=== PATIENT | female | born 1935 | race Caucasian/White ===

== ENCOUNTER 2018-06-03 12:27 | Emergency (ER) | payer OTHER ==
--- NOTE | 2018-06-03 13:05 | EDPHYS ---
Physician Documentation [facility] Name: Shannen Zaldivar Age: 82 yrs Sex: Female : 1935 Arrival Date: 06/03/2018 Time: 12:32 Bed 12 Private MD: Jordy Song C ED Physician Delvin Walsh HPI: 06/03 13:02 This 82 yrs old Female presents to ER via Ambulatory with complaints of jr8 Drainage From Eye. 13:02 The patient is experiencing pain, redness. Onset: The symptoms/episode began/occurred jr8 gradually, 3 day(s) ago. Duration: the symptoms are continuous. Aggravated by pressure, rubbing, Alleviated by heat application. Associated signs and symptoms: Pertinent positives: None. Patient wears glasses. Severity of symptoms: At their worst the symptoms were mild in the emergency department the symptoms are unchanged. The patient has not experienced similar symptoms in the past. The patient has been recently seen at an urgent care. sent from urgent care to evaluate eye to r/o cellulitis . Historical: - Allergies: 12:43 sulfamethoxazole-trimethoprim; aj1 12:43 TRIMETHOPRIM; aj1 - Home Meds: 12:43 DDAVP oral oral [Active]; tolterodine 4 mg oral cp24 1 cap once daily [Active]; Cortef aj1 5 mg Oral tab 2 tabs 2 times per day [Active]; lisinopril 20 mg Oral tab 1 tab twice a day [Active]; atorvastatin 20 mg Oral tab 1 tab once daily [Active]; Synthroid 50 mcg Oral tab 1 tab once daily [Active]; carvedilol 25 mg Oral tab 0.5 tab 2 times per day [Active]; aspirin 81 mg Oral chew 1 tab once daily [Active]; - PMHx: 12:43 Hyperlipidemia; Hypertension; Hypothyroidism; pituitary dysfunction; aj1 - PSHx: 12:43 Hysterectomy; Mastectomy; Knee surgery; aj1 - Immunization history:: Flu vaccine is up to date. - Social history:: Smoking status: Patient/guardian denies using tobacco. - Ebola Screening: : Patient denies travel to an Ebola-affected area in the 21 days before illness onset. ROS: 13:02 ENT: Negative for injury, pain, and discharge, Neck: Negative for injury, pain, and jr8 swelling, Cardiovascular: Negative for chest pain, palpitations, and edema, Respiratory: Negative for shortness of breath, cough, wheezing, and pleuritic chest pain, Abdomen/GI: Negative for abdominal pain, nausea, vomiting, diarrhea, and constipation, Back: Negative for injury and pain, MS/Extremity: Negative for injury and deformity, Skin: Negative for injury, rash, and discoloration, Neuro: Negative for headache, weakness, numbness, tingling, and seizure. 13:02 Eyes: Positive for pain, redness, swelling, of the left lower eyelid. Exam: 13:02 Visual Acuity: Visual acuity is within normal limits. jr8 13:02 Head/Face: Normocephalic, atraumatic. ENT: Nares patent. No nasal discharge, no septal abnormalities noted. Tympanic membranes are normal and external auditory canals are clear. Oropharynx with no redness, swelling, or masses, exudates, or evidence of obstruction, uvula midline. Mucous membranes moist. Neck: Trachea midline, no thyromegaly or masses palpated, and no cervical lymphadenopathy. Supple, full range of motion without nuchal rigidity, or vertebral point tenderness. No Meningismus. Cardiovascular: Regular rate and rhythm with a normal S1 and S2. No gallops, murmurs, or rubs. Normal PMI, no JVD. No pulse deficits. Respiratory: Lungs have equal breath sounds bilaterally, clear to auscultation and percussion. No rales, rhonchi or wheezes noted. No increased work of breathing, no retractions or nasal flaring. Abdomen/GI: Soft, non-tender, with normal bowel sounds. No distension or tympany. No guarding or rebound. No evidence of tenderness throughout. Back: No spinal tenderness. No costovertebral tenderness. Full range of motion. Skin: Warm, dry with normal turgor. Normal color with no rashes, no lesions, and no evidence of cellulitis. MS/ Extremity: Pulses equal, no cyanosis. Neurovascular intact. Full, normal range of motion. Neuro: Awake and alert, GCS 15, oriented to person, place, time, and situation. Cranial nerves II-XII grossly intact. Motor strength 5/5 in all extremities. Sensory grossly intact. Cerebellar exam normal. Normal gait. 13:02 Eyes: Periorbital structures: erythema, that is mild, on the left lower eyelid, swelling, that is mild, on the left lower eyelid, Pupils: equal, round, and reactive to light and accomodation, Extraocular movements: intact throughout, Conjunctiva: normal, Corneas: are normal, Sclera: no appreciated abnormality, Anterior chamber: normal, no hyphema, Lids and lashes: stye, on the left lid, Examination of the other eye reveals no obvious gross abnormality. Vital Signs: 12:43 BP 177 / 77; Pulse 50; Resp 20; Temp 97.8; Pulse Ox 96% on R/A; Weight 63.96 kg (R); aj1 Height 5 ft. 0 in. (152.40 cm); Pain 0/10; 12:43 Body Mass Index 27.54 (63.96 kg, 152.40 cm) aj1 MDM: 12:53 Patient medically screened. jr8 13:02 Data reviewed: vital signs, nurses notes, and as a result, I will discharge patient. jr8 Data interpreted: Pulse oximetry: on room air is 96 %. Interpretation: normal. Counseling: I had a detailed discussion with the patient and/or guardian regarding: the historical points, exam findings, and any diagnostic results supporting the discharge/admit diagnosis, the need for outpatient follow up, an opthalmologist, to return to the emergency department if symptoms worsen or persist or if there are any questions or concerns that arise at home. Administered Medications: No medications were administered Disposition: 06/03/18 13:05 Discharged to Home. Impression: Hordeolum (externum) (internum) of eyelid. - Condition is Stable. - Discharge Instructions: Stye. - Prescriptions for Gentamicin 0.3 % (3 mg/gram) Ophthalmic Ointment - apply 0.5 inch by OPHTHALMIC route 2-3 times daily for 7 days; 3.5 gram. - Medication Reconciliation Form, Thank You Letter, Antibiotic Education, Prescription Opioid Use form. - Follow up: Yohan Saini MD; When: 5 - 6 days; Reason: If symptoms return, Recheck today's complaints, Continuance of care, Re-evaluation by your physician. - Problem is new. - Symptoms have improved. - Notes: Warm moist towel application to left eye with light massage 5 times a day for 15-20 min per time Addendum: 06/04/2018 14:23 Co-signature as Attending Physician, Delvin Walsh MD I agree with the assessment and c larkin plan of care. Signatures: Evy Gloria, RN RN aj1 Delvin Walsh MD MD cha Williams, Irene, RN RN iw Manuel Farmer PA PA jr8 Corrections: (The following items were deleted from the chart) 06/03 13:14 13:05 06/03/2018 13:05 Discharged to Home. Impression: Hordeolum (externum) (internum) iw of eyelid. Condition is Stable. Forms are Medication Reconciliation Form, Thank You Letter, Antibiotic Education, Prescription Opioid Use. Follow up: Yohan Saini; When: 5 - 6 days; Reason: If symptoms return, Recheck today's complaints, Continuance of care, Re-evaluation by your physician. Problem is new. Symptoms have improved. jr8
--- NOTE | 2018-06-03 13:05 | ER ---
Nurse's Notes [facility] Name: Shannen Zaldivar Age: 82 yrs Sex: Female : 1935 Arrival Date: 06/03/2018 Time: 12:32 Bed 12 Private MD: Jordy Song C Diagnosis: Hordeolum (externum) (internum) of eyelid Presentation: 06/03 12:35 Presenting complaint: Patient states: Redness to left eye that started Monday aj1 afternoon. Patient reports it started with itching, and she thought it was just irritated, but it just kept getting worse. Reports tearing of the left eye. Transition of care: patient was not received from another setting of care. Onset of symptoms was June 01, 2018. Risk Assessment: Do you want to hurt yourself or someone else? Patient reports no desire to harm self or others. Initial Sepsis Screen: Does the patient meet any 2 criteria? No. Patient's initial sepsis screen is negative. Does the patient have a suspected source of infection? No. Patient's initial sepsis screen is negative. Care prior to arrival: None. 12:35 Method Of Arrival: Ambulatory aj1 12:35 Acuity: DARNELL 4 aj1 Triage Assessment: 12:43 General: Appears in no apparent distress. comfortable, Behavior is calm, cooperative, aj1 appropriate for age. Pain: Denies pain. EENT: Eyes are tearing on left lower eyelid Lid(s) w/ stye noted left inner canthus redness noted below left eye. Neuro: Level of Consciousness is awake, alert, obeys commands. Cardiovascular: Patient's skin is warm and dry. Respiratory: Airway is patent Respiratory effort is even, unlabored, Respiratory pattern is regular, symmetrical. Historical: - Allergies: 12:43 sulfamethoxazole-trimethoprim; aj1 12:43 TRIMETHOPRIM; aj1 - Home Meds: 12:43 DDAVP oral oral [Active]; tolterodine 4 mg oral cp24 1 cap once daily [Active]; Cortef aj1 5 mg Oral tab 2 tabs 2 times per day [Active]; lisinopril 20 mg Oral tab 1 tab twice a day [Active]; atorvastatin 20 mg Oral tab 1 tab once daily [Active]; Synthroid 50 mcg Oral tab 1 tab once daily [Active]; carvedilol 25 mg Oral tab 0.5 tab 2 times per day [Active]; aspirin 81 mg Oral chew 1 tab once daily [Active]; - PMHx: 12:43 Hyperlipidemia; Hypertension; Hypothyroidism; pituitary dysfunction; aj1 - PSHx: 12:43 Hysterectomy; Mastectomy; Knee surgery; aj1 - Immunization history:: Flu vaccine is up to date. - Social history:: Smoking status: Patient/guardian denies using tobacco. - Ebola Screening: : Patient denies travel to an Ebola-affected area in the 21 days before illness onset. Screenin:13 Abuse screen: Denies threats or abuse. Denies injuries from another. Nutritional iw screening: No deficits noted. Tuberculosis screening: No symptoms or risk factors identified. Fall Risk None identified. Assessment: 13:12 General: Appears in no apparent distress. Behavior is calm, cooperative. Pain: iw Complains of pain in left inner canthus and left lower eyelid. Neuro: Level of Consciousness is awake, alert, obeys commands. Cardiovascular: Patient's skin is warm and dry. Respiratory: Respiratory effort is even, unlabored. EENT: Sclera/Cornea are reddened in left lower eyelid Lid(s) w/ stye noted left lower eyelid. Derm: Skin is pink, warm \T\ dry. normal. Vital Signs: 12:43 BP 177 / 77; Pulse 50; Resp 20; Temp 97.8; Pulse Ox 96% on R/A; Weight 63.96 kg (R); aj1 Height 5 ft. 0 in. (152.40 cm); Pain 0/10; 12:43 Body Mass Index 27.54 (63.96 kg, 152.40 cm) aj1 ED Course: 12:32 Patient arrived in ED. mr 12:32 Jordy Song MD is Private Physician. mr 12:38 Triage completed. aj1 12:48 Amarilis Tapia, NOEMI is Primary Nurse. iw 12:50 Arm band placed on. iw 12:50 Patient has correct armband on for positive identification. iw 12:52 Manuel Farmer PA is PHCP. jr8 12:52 Delvin Walsh MD is Attending Physician. jr8 13:05 Yohan Saini MD is Referral Physician. jr8 13:13 No provider procedures requiring assistance completed. Patient did not have IV access iw during this emergency room visit. Administered Medications: No medications were administered Outcome: 13:05 Discharge ordered by MD. wells 13:13 Discharged to home ambulatory. 13:13 Condition: good 13:13 Discharge instructions given to patient, Instructed on discharge instructions, follow up and referral plans. medication usage, Demonstrated understanding of instructions, follow-up care, medications, Prescriptions given X 1. 13:14 Patient left the ED. iw Signatures: Evy Gloria RN RN aj1 Samantha Felder mr Amarilis Tapia RN RN Manuel Farmer PA PA jr8
[2018-06-03 13:18] VITALS: BP 177/77; TEMP 97.8; O2SAT 96
== END 2018-06-03 13:14 | disposition home or self-care (01) ==
LOC: ER 12:27
DX: H00.025 Hordeolum internum left lower eyelid (principal); E78.5 Hyperlipidemia, unspecified; E03.9 Hypothyroidism, unspecified; I10 Essential (primary) hypertension; Z88.2 Allergy status to sulfonamides; Z88.8 Allergy status to other drugs, medicaments and biological substances
CPT/HCPCS: 99282

== ENCOUNTER 2019-02-15 08:37 | Emergency (ER) | payer OTHER ==
--- NOTE | 2019-02-15 09:17 | RAD REPORT ---
EXAM DESCRIPTION: CT - Head C Spine Mpr Wo Con - 02/15/2019 8:55 am CLINICAL HISTORY: Head and neck injury status post fall. Head and neck pain COMPARISON: None. TECHNIQUE: Computed axial tomography of the head and cervical spine was obtained. Sagittal and coronal reconstruction was performed. All CT scans are performed using dose optimization technique as appropriate and may include automated exposure control or mA/KV adjustment according to patient size. FINDINGS: Left frontal scalp hematoma. An underlying skull fracture is not seen. 7 millimeter calcification is present within the region of the right anterior aspect of the lummi of Robles. An intracranial bleed is not seen. The ventricles are normal in caliber. An extra-axial fluid collect ion is not noted.Fluid within the visualized sinuses and mastoids is not seen A cervical fracture is not visualized. Mild anterior subluxation of C4 on C5. Mild posterior subluxation C5 on C6. Marked disc space narrowing with osteophytes. Mild to moderate c entral and moderate to marked bilateral foraminal stenosis Mild anterior subluxation C7 on T1 IMPRESSION: Left frontal scalp hematoma without visualization without acute abnormality 7 millimeter calcification within the region of the right anterior aspect of the lummi Robles may re present an aneurysm. MRI brain with contrast and MRA head recommended A cervical fracture is not visualized. Mild anterior subluxation C4 on C5. Mild posterior subluxation C5 on C6. Mild anterior subluxation C7 on T1. Presumably these are chronic findings. If patient has clinical symptoms to suggest spinal cor d pathology/ligamentous injury then MRI would be recommended
[2019-02-15] MEDS ORDERED: DERMABOND SKIN ADHESIVE TOP ONE (10:09)
--- NOTE | 2019-02-15 11:23 | RAD REPORT ---
EXAM DESCRIPTION: RAD - Hand Left 3 View - 02/15/2019 11:02 am CLINICAL HISTORY: Trip and fall, hand pain, pain primarily fifth digit COMPARISON: None. FINDINGS: No fracture, dislocation or periosteal reaction noted. Bones are osteopenic. IP joint spac e narrowing is present along with significant joint space narrowing at the second MCP joint. No signi ficant spurring the joints and no erosive change. Patient has moderately advanced degenerative change at the trapezium first metacarpal articulation. Advanced degenerative changes are present at the rad iocarpal articulation. There is chronic scapholunate ligament disruption and widening of the scapholu gabino joint space. Significant degenerative changes involve the articulation of the scaphoid with the trapezoid and trapezium. Radiocarpal joint space is significantly narrowed with remodeling of the art icular surface of the radius near the styloid. No air or foreign body in the soft tissues. 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 No fracture or acute froilan ne finding identifiable.
--- NOTE | 2019-02-15 11:39 | EDPHYS ---
Physician Documentation [facility] Name: Shannen Zaldivar Age: 83 yrs Sex: Female : 1935 Arrival Date: 02/15/2019 Time: 08:39 Bed 15 Private MD: ED Physician Yobany Petersen HPI: 02/15 09:54 This 83 yrs old Female presents to ER via EMS with complaints of Fall Injury. snw 09:54 Details of fall: The patient fell from an upright position, tripped taking out the snw trash. Onset: The symptoms/episode began/occurred suddenly, just prior to arrival. Associated injuries: The patient sustained injury to the head. Severity of symptoms: At their worst the symptoms were mild, moderate. It is unknown whether or not the patient has had similar symptoms in the past. It is unknown whether or not the patient has recently seen a physician. no LOC. Denies complaint at this time.. Historical: - Allergies: 08:49 sulfamethoxazole-trimethoprim; hj 08:49 TRIMETHOPRIM; hj - Home Meds: 08:49 alprazolam 0.25 mg Oral tab 1 tab daily [Active]; aspirin 81 mg Oral chew 1 tab once hj daily [Active]; atorvastatin 20 mg Oral tab 1 tab once daily [Active]; carvedilol 25 mg Oral tab 0.5 tab 2 times per day [Active]; lisinopril 20 mg Oral tab 1 tab twice a day [Active]; Synthroid 50 mcg Oral tab 1 tab once daily [Active]; DDAVP Oral nightly [Active]; Cortef 5 mg Oral tab 2 tabs 2 times per day [Active]; tolterodine 4 mg Oral cp24 1 cap once daily [Active]; tramadol 50 mg Oral tab 1 tab as needed [Active]; promethazine 25 mg Oral tab 1 tab as needed [Active]; - PMHx: 08:49 Hyperlipidemia; Hypertension; Hypothyroidism; pituitary dysfunction; hj - PSHx: 08:49 Hysterectomy; Mastectomy; Knee surgery; hj - Immunization history: Last tetanus immunization: unknown. - Social history:: Smoking status: Patient/guardian denies using tobacco, Patient/guardian denies using alcohol. - Ebola Screening: : Patient negative for fever greater than or equal to 101.5 degrees Fahrenheit, and additional compatible Ebola Virus Disease symptoms Patient denies exposure to infectious person Patient denies travel to an Ebola-affected area in the 21 days before illness onset. ROS: 09:53 Constitutional: Negative for fever, chills, and weight loss, Eyes: Negative for injury, snw pain, redness, and discharge, ENT: Negative for injury, pain, and discharge, Neck: Negative for injury, pain, and swelling, Cardiovascular: Negative for chest pain, palpitations, and edema, Respiratory: Negative for shortness of breath, cough, wheezing, and pleuritic chest pain, Abdomen/GI: Negative for abdominal pain, nausea, vomiting, diarrhea, and constipation, Back: Negative for injury and pain, : Negative for injury, bleeding, discharge, and swelling, MS/Extremity: Negative for injury and deformity, sore left pinkie 09:53 Skin: Positive for laceration(s), of the forehead. Exam: 09:49 Constitutional: This is a well developed, well nourished patient who is awake, alert, snw and in no acute distress. Eyes: Pupils equal round and reactive to light, extra-ocular motions intact. Lids and lashes normal. Conjunctiva and sclera are non-icteric and not injected. Cornea within normal limits. Periorbital areas with no swelling, redness, or edema. ENT: Nares patent. No nasal discharge, no septal abnormalities noted. Tympanic membranes are normal and external auditory canals are clear. Oropharynx with no redness, swelling, or masses, exudates, or evidence of obstruction, uvula midline. Mucous membranes moist. Neck: Trachea midline, no thyromegaly or masses palpated, and no cervical lymphadenopathy. Supple, full range of motion without nuchal rigidity, or vertebral point tenderness. No Meningismus. Chest/axilla: Normal chest wall appearance and motion. Nontender with no deformity. No lesions are appreciated. 09:49 Respiratory: Lungs have equal breath sounds bilaterally, clear to auscultation and percussion. No rales, rhonchi or wheezes noted. No increased work of breathing, no retractions or nasal flaring. Abdomen/GI: Soft, non-tender, with normal bowel sounds. No distension or tympany. No guarding or rebound. No evidence of tenderness throughout. Back: No spinal tenderness. No costovertebral tenderness. Full range of motion. MS/ Extremity: Pulses equal, no cyanosis. Neurovascular intact. Full, normal range of motion. Neuro: Awake and alert, GCS 15, oriented to person, place, time, and situation. Cranial nerves II-XII grossly intact. Motor strength 5/5 in all extremities. Sensory grossly intact. Cerebellar exam normal. Normal gait. Psych: Awake, alert, with orientation to person, place and time. Behavior, mood, and affect are within normal limits. 09:49 ENT: Nares patent. No nasal discharge, no septal abnormalities noted. Tympanic membranes are normal and external auditory canals are clear. Oropharynx with no redness, swelling, or masses, exudates, or evidence of obstruction, uvula midline. Mucous membranes moist. left lateral nare with scabbed area (pt states she picked at it a day or so ago) 09:49 Head/face: Noted is contusion, that is deep, of the left side of forehead, a laceration(s), that is superficial, that is linear, 2.5 cm(s), of the left side of forehead. 09:49 Cardiovascular: Rate: bradycardic, Rhythm: regular, Heart sounds: normal. 09:49 Skin: Appearance: normal except for affected area, injury, contusion(s), that are superficial, of the forehead and nose and left hand and left wrist, skin avulsion to left wrist. Vital Signs: 08:39 BP 141 / 52; Pulse 48; Resp 18; Temp 97.3(TE); Pulse Ox 98% on R/A; Weight 64.86 kg; Height 5 ft. 0 in. (152.40 cm); Pain 5/10; 10:53 BP 141 / 54; Pulse 82; Resp 17; Pulse Ox 98% on R/A; dh3 11:31 BP 115 / 73 LA Supine; Pulse 45; Resp 16 S; Pulse Ox 98% on R/A; rv 08:39 Body Mass Index 27.93 (64.86 kg, 152.40 cm) Roslyn Coma Score: 08:39 Eye Response: spontaneous(4). Verbal Response: oriented(5). Motor Response: obeys commands(6). Total: 15. Trauma Score (Adult): 08:39 Eye Response: spontaneous(1); Verbal Response: oriented(1); Motor Response: obeys hj commands(2); Systolic BP: > 89 mm Hg(4); Respiratory Rate: 10 to 29 per min(4); Roslyn Score: 15; Trauma Score: 12 MDM: 09:46 Patient medically screened. snw 11:39 Data reviewed: vital signs, nurses notes. Data interpreted: Pulse oximetry: on room air snw is 98 %. Interpretation: normal. Counseling: I had a detailed discussion with the patient and/or guardian regarding: the historical points, exam findings, and any diagnostic results supporting the discharge/admit diagnosis, the need for outpatient follow up, for definitive care, to return to the emergency department if symptoms worsen or persist or if there are any questions or concerns that arise at home. Special discussion: Based on the history and exam findings, there is no indication for further emergent testing or inpatient evaluation. I discussed with the patient/guardian the need to see the primary care provider for further evaluation of the symptoms. 02/15 08:46 Order name: CT Head C Spine; Complete Time: 09:45 snw 02/15 10:16 Order name: Hand Left 3 View XRAY; Complete Time: 11:25 snw 02/15 09:03 Order name: EKG - Nurse/Tech; Complete Time: 09:08 hj 02/15 09:47 Order name: Wound Care; Complete Time: 09:56 snw 02/15 09:47 Order name: Wound dressing; Complete Time: 09:56 snw 02/15 09:47 Order name: Dermabond; Complete Time: 10:06 snw Administered Medications: No medications were administered Disposition: 12:11 Co-signature as Attending Physician, Yobany Petersen MD I agree with the assessment and kdr plan of care. Disposition: 02/15/19 11:38 Discharged to Home. Impression: Fall on same level from slipping, tripping and stumbling with subsequent striking against other object, Laceration without foreign body of unspecified part of head - left forehead, Contusion of left hand, Left wrist skin avulsion. - Condition is Stable. - Discharge Instructions: Hand Contusion, Tissue Adhesive Wound Care, Head Injury, Adult, Fall Prevention in the Home, Facial Laceration, Skin Tear Care. - Prescriptions for Mobic 7.5 mg Oral Tablet - take 1 tablet by ORAL route once daily take with food; 10 tablet. - Medication Reconciliation Form, Thank You Letter, Antibiotic Education, Prescription Opioid Use form. - Follow up: Private Physician; When: 2 - 3 days; Reason: Recheck today's complaints, Continuance of care, Re-evaluation by your physician. Follow up: Emergency Department; When: As needed; Reason: Worsening of condition. Signatures: Dispatcher [employer] EDMS Yobany Petersen MD MD [facility] Alanna Monteiro, MARY KAY-C ENGINE TESTING SUPERVISOR-[employer] Stephon Ledezma, NOEMI RN Juan Edmonds RN RN rv Corrections: (The following items were deleted from the chart) 11:42 11:38 02/15/2019 11:38 Discharged to Home. Impression: Fall on same level from rv slipping, tripping and stumbling with subsequent striking against other object; Laceration without foreign body of unspecified part of head - left forehead; Contusion of left hand; Left wrist skin avulsion. Condition is Stable. Discharge Instructions: Hand Contusion, Tissue Adhesive Wound Care, Head Injury, Adult, Fall Prevention in the Home, Facial Laceration, Skin Tear Care. Prescriptions for Mobic 7.5 mg Oral Tablet - take 1 tablet by ORAL route once daily take with food; 10 tablet. and Forms are Medication Reconciliation Form, Thank You Letter, Antibiotic Education, Prescription Opioid Use. Follow up: Private Physician; When: 2 - 3 days; Reason: Recheck today's complaints, Continuance of care, Re-evaluation by your physician. Follow up: Emergency Department; When: As needed; Reason: Worsening of condition. snw
--- NOTE | 2019-02-15 11:39 | ER ---
Nurse's Notes [facility] Name: Shannen Zaldivar Age: 83 yrs Sex: Female : 1935 Arrival Date: 02/15/2019 Time: 08:39 Bed 15 Private MD: Diagnosis: Fall on same level from slipping, tripping and stumbling with subsequent striking against other object;Laceration without foreign body of unspecified part of head-left forehead;Contusion of left hand;Left wrist skin avulsion Presentation: 02/15 08:41 Presenting complaint: EMS states: was getting the trash out of the house when pt hj tripped and fell from standing position, had a cut on the L side of the head and lac on the L arm area; denies LOC; takes daily 81 mg aspirin, and hx of brain surgery 1990;. Care prior to arrival: None. Mechanism of Injury: Fall from standing position. Trauma event details: Injury occurred in the [facility], Injury occurred: at home. Injury occurred: February 15, 2019. 08:41 Acuity: DARNELL 3 hj 08:41 Method Of Arrival: EMS: [facility] 08:46 Transition of care: patient was not received from another setting of care. Onset of hj symptoms was February 15, 2019. Risk Assessment: Do you want to hurt yourself or someone else? Patient reports no desire to harm self or others. Initial Sepsis Screen: Does the patient meet any 2 criteria? No. Patient's initial sepsis screen is negative. Does the patient have a suspected source of infection? No. Patient's initial sepsis screen is negative. Trauma Activation: Alert Physician: ED Physician; Name: ; Notified At: ; Arrived At: Physician: General Surgeon; Name: ; Notified At: ; Arrived At: Physician: Radiology; Name: ; Notified At: ; Arrived At: Physician: Respiratory; Name: ; Notified At: ; Arrived At: Physician: Lab; Name: ; Notified At: ; Arrived At: Historical: - Allergies: 08:49 sulfamethoxazole-trimethoprim; hj 08:49 TRIMETHOPRIM; hj - Home Meds: 08:49 alprazolam 0.25 mg Oral tab 1 tab daily [Active]; aspirin 81 mg Oral chew 1 tab once hj daily [Active]; atorvastatin 20 mg Oral tab 1 tab once daily [Active]; carvedilol 25 mg Oral tab 0.5 tab 2 times per day [Active]; lisinopril 20 mg Oral tab 1 tab twice a day [Active]; Synthroid 50 mcg Oral tab 1 tab once daily [Active]; DDAVP Oral nightly [Active]; Cortef 5 mg Oral tab 2 tabs 2 times per day [Active]; tolterodine 4 mg Oral cp24 1 cap once daily [Active]; tramadol 50 mg Oral tab 1 tab as needed [Active]; promethazine 25 mg Oral tab 1 tab as needed [Active]; - PMHx: 08:49 Hyperlipidemia; Hypertension; Hypothyroidism; pituitary dysfunction; hj - PSHx: 08:49 Hysterectomy; Mastectomy; Knee surgery; hj - Immunization history: Last tetanus immunization: unknown. - Social history:: Smoking status: Patient/guardian denies using tobacco, Patient/guardian denies using alcohol. - Ebola Screening: : Patient negative for fever greater than or equal to 101.5 degrees Fahrenheit, and additional compatible Ebola Virus Disease symptoms Patient denies exposure to infectious person Patient denies travel to an Ebola-affected area in the 21 days before illness onset. Screenin:45 Abuse screen: Denies threats or abuse. Denies injuries from another. Nutritional hj screening: No deficits noted. Tuberculosis screening: Fall Risk Fall in past 12 months (25 points). Primary Survey: 08:40 NO uncontrolled hemorrhage observed. A: The patient is alert. Airway: patent, No hj supplemental oxygen in use on arrival. Oral cavity: clear, gag reflex present, Trachea midline. Breathing/Chest: Respiratory pattern: regular, Respiratory effort: spontaneous, unlabored, Breath sounds: clear, Chest inspection: symmetrical rise and fall of the chest. Circulation: Cardiac rhythm: sinus bradycardia Heart tones present. Pulses: palpable right radial artery and left radial artery. Skin color: pink, Skin temperature: warm, dry. Disability Alert. Exposure/Environment: All clothing and personal items were removed. Forensic evidence collection is not deemed to be indicated at this time. Items placed in patient belonging bag. There is no evidence of uncontrolled external bleeding. No obvious injuries are noted at this time. A warming method has been applied: A warm blanket has been provided to the patient. 08:40 Reassessment Airway Airway Patent Oxygen No O2 Oral cavity Clear +Gag reflex Trachea hj Midline Breathing/Chest Respiratory pattern Regular Respiratory effort Spontaneous Unlabored Breath sounds Clear Chest inspection Symmetrical Circulation Heart rhythm Sinus rhythm Heart tones Present Pulses Palpable Color [place] Temperature Warm Dry Disability Alert. Secondary Survey: 08:40 HEENT: Head Other lac L side of head Face No injury/deformity Eyes: No injury or hj deformity noted. Ears: clear Nose: clear. Gastrointestinal: No deficits noted. : No signs and/or symptoms were reported regarding the genitourinary system. Musculoskeletal: Reports pain in head, L arm. Assessment: 08:44 General: Appears in no apparent distress. uncomfortable, Behavior is calm, cooperative, hj appropriate for age. Pain: Complains of pain in head, L arm. Neuro: Level of Consciousness is awake, alert, obeys commands, Oriented to person, place, time, situation, Appropriate for age. EENT: No signs and/or symptoms were reported regarding the EENT system. Cardiovascular: Capillary refill < 3 seconds Patient's skin is warm and dry. Cardiovascular: Rhythm is sinus bradycardia. Respiratory: Airway is patent Respiratory effort is even, unlabored, Respiratory pattern is regular, symmetrical. GI: No signs and/or symptoms were reported involving the gastrointestinal system. : No signs and/or symptoms were reported regarding the genitourinary system. Derm: Reports lac on L side of head, L arm. Musculoskeletal: No signs and/or symptoms reported regarding the musculoskeletal system. Vital Signs: 08:39 BP 141 / 52; Pulse 48; Resp 18; Temp 97.3(TE); Pulse Ox 98% on R/A; Weight 64.86 kg; hj Height 5 ft. 0 in. (152.40 cm); Pain 5/10; 10:53 BP 141 / 54; Pulse 82; Resp 17; Pulse Ox 98% on R/A; dh3 11:31 BP 115 / 73 LA Supine; Pulse 45; Resp 16 S; Pulse Ox 98% on R/A; rv 08:39 Body Mass Index 27.93 (64.86 kg, 152.40 cm) [place]utton Coma Score: 08:39 Eye Response: spontaneous(4). Verbal Response: oriented(5). Motor Response: obeys commands(6). Total: 15. Trauma Score (Adult): 08:39 Eye Response: spontaneous(1); Verbal Response: oriented(1); Motor Response: obeys hj commands(2); Systolic BP: > 89 mm Hg(4); Respiratory Rate: 10 to 29 per min(4); Roslyn Score: 15; Trauma Score: 12 ED Course: 08:39 Patient arrived in ED. hj 08:44 Triage completed. hj 08:45 Arm band placed on right wrist. hj 08:49 Patient maintains SpO2 saturation greater than 95% on room air. hj 08:50 Stephon Ledezma, NOEMI is Primary Nurse. hj 08:50 Patient has correct armband on for positive identification. Placed in gown. Bed in low hj position. Call light in reach. Side rails up X 1. 08:50 Thermoregulation: warm blanket given to patient. hj 08:[address] via stretcher. nj 08:56 CT Head C Spine In Process Unspecified. EDMS 09:05 Yobany Petersen MD is Attending Physician. kdr 09:28 [facility] Monteiro [facility]-C [facility] snw 09:56 Wound care: to laceration located on forehead was cleaned with Hibiclens, and normal dh3 saline. 09:58 Wound care: to skin tear to left wrist, cleaned with Hibiclens and normal saline dh3 dressed with non-adherent gauze and tube gauze. 10:20 Juan Edmonds, NOEMI is Primary Nurse. rv 11:01 X-ray completed. Portable x-ray completed in exam room. Patient tolerated procedure ml well. 11:02 Hand Left 3 View XRAY In Process Unspecified. EDMS 11:31 Assist provider with laceration repair on left side of forehead that was 2.5 cm. or rv less using Dermabond. Performed by Alanna MOCTEZUMA Dressed with non-adherent, gauze Patient tolerated well. Patient did not have IV access during this emergency room visit. Administered Medications: No medications were administered Outcome: 11:33 Discharged to home ambulatory. rv 11:33 Condition: good 11:33 Discharge instructions given to patient, family, Instructed on discharge instructions, follow up and referral plans. medication usage, wound care, Demonstrated understanding of instructions, follow-up care, medications, wound care, Prescriptions given X 1. 11:38 Discharge ordered by . snw 11:42 Patient left the ED. rv Signatures: Dispatcher [employer] EDMS Yobany Petersen MD MD kdr Thania, Alanna, BACKROOM ASSOCIATE-C BACKROOM ASSOCIATE-Csnw Ann-Marie Black Henry, RN RN Sim Mayers Deanna [facility] Juan Edmonds RN RN rv Corrections: (The following items were deleted from the chart) 09:58 09:56 Wound care: to laceration located on forehead was cleaned with Hibiclens, and dh3 normal saline dh3 10:05 09:58 Wound care: to skin tear, cleaned with Hibiclens and normal saline dressed with dh3 non-adherent gauze and tube gauze dh3
[2019-02-15 13:09] VITALS: TEMP 97.3; O2SAT 98
[2019-02-15 13:12] VITALS: BP 115/73
--- NOTE | 2019-02-16 10:18 | EKG ---
Test Date: 2019-02-15 Test Time: 09:08:20 Sausage Inspector: NORMAN MEASUREMENT RESULTS: Intervals: Rate: 48 [place]: 182 QRSD: 82 QT: 482 QTc: 430 [place]: P: 48 [place]: 182 QRS: 4 T: 101 INTERPRETIVE STATEMENTS: Marked sinus bradycardia Nonspecific ST and T wave abnormality Abnormal ECG Compared to ECG 10/26/2017 07:39:19 ST (T wave) deviation now present Electronically Signed On 02-16-19 10:16:32 CDT by Caden Núñez
== END 2019-02-15 11:42 | disposition home or self-care (01) ==
LOC: ER 08:37
PROC: 0JQ10ZZ Repair Face Subcutaneous Tissue and Fascia, Open Approach (ICD-10-PCS; principal; 2019-02-15)
DX: S01.81XA Laceration without foreign body of other part of head, initial encounter (principal); S60.222A Contusion of left hand, initial encounter; S61.502A Unspecified open wound of left wrist, initial encounter; W01.0XXA Fall on same level from slipping, tripping and stumbling without subsequent striking against object, initial encounter; Y93.E9 Activity, other interior property and clothing maintenance; Y92.9 Unspecified place or not applicable; Z79.82 Long term (current) use of aspirin; Z88.2 Allergy status to sulfonamides; Z88.8 Allergy status to other drugs, medicaments and biological substances; I10 Essential (primary) hypertension; E78.5 Hyperlipidemia, unspecified; E03.9 Hypothyroidism, unspecified
CPT/HCPCS: 93005; 70450; 72125; 73130; 99285; 12011; G0168

== ENCOUNTER 2019-12-17 08:13 | Emergency (ER) | payer OTHER ==
--- NOTE | 2019-12-17 09:31 | RAD REPORT ---
EXAM DESCRIPTION: CT - [id number] - 12/17/2019 9:06 am CLINICAL HISTORY: Trauma, head and neck injury. head injury COMPARISON: Head C Spine Mpr Wo Con dated 02/15/2019 TECHNIQUE: Axial 5 mm thick images of the head were obtained. Axial 2 mm thick images of the cervical spine were obtained with sagittal and coronal reconstruction images generated and reviewed. All CT scans are performed using dose optimization technique as appropriate and may include automated exposure control or mA/KV adjustment according to patient size. FINDINGS: CT HEAD WITHOUT CONTRAST: No acute hemorrhage, hydrocephalus or extra-axial collection is identified.Mild generalized brain atr ophy is present with mild periventricular and deep white matter chronic microvascular ischemic change s.No areas of brain edema or midline shift. The paranasal sinuses and mastoids are clear.The calvarium is intact. CT CERVICAL SPINE WITHOUT CONTRAST: No fracture or subluxation.Prominent lower cervical degenerative changes are present. Disc thinning w ith posterior osteophyte at the C5-6, C6-7. 3 mm degenerative anterolisthesis of C4 on 5. 4 mm degene rative anterolisthesis of C7 on T1.No prevertebral soft tissues swelling is identified. IMPRESSION: No acute intracranial or cervical spine findings. Moderate lower cervical degenerative changes are present. No significant change is seen in cervical d egenerative changes since 02/15/2019 prior study.
--- NOTE | 2019-12-17 09:40 | ER ---
Nurse's Notes [facility] Name: Shannen Zaldivar Age: 84 yrs Sex: Female : 1935 Arrival Date: 12/17/2019 Time: 08:16 Bed 4 Private MD: Jordy Song C Diagnosis: Superficial injury of head Presentation: 12/17 08:37 Presenting complaint: Patient states: was walking with cane this morning about 0400, iw turned to reach for light switch, lost balance and fell, hit head against sheetrock wall, now c/o headache, nausea, no vomiting, denies LOC, not on blood thinners, also c/o right hip pain. 08:39 Care prior to arrival: None. Mechanism of Injury: Fall from standing position. Trauma iw event details: Injury occurred in the [facility]. 08:39 Acuity: DARNELL 3 iw 08:39 Method Of Arrival: Wheelchair iw 08:40 Transition of care: patient was not received from another setting of care. Onset of sv symptoms was December 17, 2019. Risk Assessment: Do you want to hurt yourself or someone else? Patient reports no desire to harm self or others. Initial Sepsis Screen: Does the patient meet any 2 criteria? No. Patient's initial sepsis screen is negative. Does the patient have a suspected source of infection? No. Patient's initial sepsis screen is negative. Trauma Activation: Not Applicable Physician: ED Physician; Name: ; Notified At: ; Arrived At: Physician: General Surgeon; Name: ; Notified At: ; Arrived At: Physician: Radiology; Name: ; Notified At: ; Arrived At: Physician: Respiratory; Name: ; Notified At: ; Arrived At: Physician: Lab; Name: ; Notified At: ; Arrived At: Historical: - Allergies: 08:34 sulfamethoxazole-trimethoprim; iw 08:34 TRIMETHOPRIM; iw - Home Meds: 08:34 Synthroid 50 mcg Oral tab 1 tab once daily [Active]; tolterodine 4 mg Oral cp24 1 cap iw once daily [Active]; lisinopril 20 mg Oral tab 1 tab twice a day [Active]; atorvastatin 20 mg Oral tab 1 tab once daily [Active]; carvedilol 25 mg Oral tab 0.5 tab 2 times per day [Active]; amlodipine 5 mg tab 1 tab once daily [Active]; Cortef 5 mg Oral tab 2 tabs 2 times per day [Active]; desmopressin 10 mcg/spray (0.1 mL) Nasal spry 1 spray once daily [Active]; - PMHx: 08:34 Hyperlipidemia; Hypertension; Hypothyroidism; pituitary dysfunction; iw - PSHx: 08:34 Hysterectomy; Mastectomy; Knee surgery; iw - Immunization history:: Adult Immunizations up to date. - Coronavirus screen:: The patient has NOT traveled to [place] in the past 14 days. Proceed with normal triage process as indicated. The patient has NOT had contact with known/suspected case of Coronavirus? Proceed with normal triage procedures. - Immunization history: Last tetanus immunization: unknown. - Family history:: not pertinent. - Social history:: Smoking status: Patient denies any tobacco usage or history of. - Hospitalizations: : No recent hospitalization is reported. - Ebola Screening: : No symptoms or risks identified at this time. Screenin:42 Abuse screen: Denies threats or abuse. Nutritional screening: No deficits noted. Tuberculosis screening: No symptoms or risk factors identified. Fall Risk Fall in past 12 months (25 points). Ambulatory Aid- Crutches/Cane/Walker (15 pts). Gait- Weak (10 pts.). Total Garcia Fall Scale indicates High Risk Score (45 or more points). Side Rails Up X 2 Placed Close to Nursing Station Frequent Obs/Assessments Occuring Family Present and informed to notify staff if the need to leave the bedside As available patient and family educated on Fall Prevention Program and Strategies. Primary Survey: 08:34 NO uncontrolled hemorrhage observed. A: The patient is alert. Airway: patent. iw Breathing/Chest: Respiratory pattern: regular, Respiratory effort: spontaneous. Circulation: Cardiac rhythm: Pulses: palpable right radial artery and left radial artery. Disability Alert. Exposure/Environment: All clothing and personal items were removed. Forensic evidence collection is not deemed to be indicated at this time. Items placed in patient belonging bag. 10:01 Reassessment Airway Airway Patent Oxygen No O2 Oral cavity Clear Trachea Midline sv Breathing/Chest Respiratory pattern Regular Respiratory effort Spontaneous Unlabored Chest inspection Symmetrical Circulation Heart tones Present Pulses Palpable Color [place] Temperature Warm Dry Disability Alert. Secondary Survey: 09:00 HEENT: No deficits noted. Gastrointestinal: No deficits noted. : No deficits noted. sv No signs and/or symptoms were reported regarding the genitourinary system. Musculoskeletal: No deficits noted. No signs and/or symptoms reported regarding the musculoskeletal system. Assessment: 08:30 General: Appears uncomfortable, Behavior is calm, cooperative, appropriate for age. ah Pain: Complains of pain in forehead and her neck Pain does not radiate. Pain currently is 10 out of 10 on a pain scale. Quality of pain is described as aching, throbbing, Pain began approx 0345 this morning. Neuro: Level of Consciousness is awake, alert, Oriented to person, place, time, situation, Adzing And Boring Machine Feeder are equal bilaterally Moves all extremities. Speech is normal, Facial symmetry appears normal, Pupils are PERRLA. Cardiovascular: Heart tones S1 S2 present Capillary refill Patient's skin is warm and dry. Pulses are palpable in right radial artery, right dorsalis pedis artery, left radial artery and left dorsalis pedis artery. Respiratory: Airway is patent Respiratory effort is even, unlabored, Respiratory pattern is regular, Breath sounds are clear bilaterally. GI: Abdomen is non-distended, Bowel sounds present X 4 quads. GI: Reports nausea, Patient currently denies vomiting. : No signs and/or symptoms were reported regarding the genitourinary system. EENT: No signs and/or symptoms were reported regarding the EENT system. Derm: Skin is intact, is healthy with good turgor. Musculoskeletal: Circulation, motion, and sensation intact. Reports Pt states that she has some pain in her right hip as well but it just feels bruised, No discoloration noted at this time. Injury Description: Pt states that she fell around 0345 this morning and hit her head on the wall and cracked the sheet rock. 08:30 General: Reports that her gave her an aleve at 0700am this morning, but she has ah not taken any of her other prescription medication. Vital Signs: 08:30 BP 147 / 57; Pulse 58; Resp 16 S; Pulse Ox 98% on R/A; iw 08:30 Temp 97.8; ah 09:03 BP 118 / 46; Pulse 55; Resp 16; Temp 97.9; Pulse Ox 98% ; sv 09:38 BP 120 / 46; Pulse 59; Resp 16; Pulse Ox 98% ; sv Roslyn Coma Score: 08:30 Eye Response: spontaneous(4). Verbal Response: oriented(5). Motor Response: obeys iw commands(6). Total: 15. 09:03 Eye Response: spontaneous(4). Verbal Response: oriented(5). Motor Response: obeys sv commands(6). Total: 15. Trauma Score (Adult): 08:30 Eye Response: spontaneous(1); Verbal Response: oriented(1); Motor Response: obeys iw commands(2); Systolic BP: > 89 mm Hg(4); Respiratory Rate: 10 to 29 per min(4); Roslyn Score: 15; Trauma Score: 12 09:03 Eye Response: spontaneous(1); Verbal Response: oriented(1); Motor Response: obeys sv commands(2); Systolic BP: > 89 mm Hg(4); Respiratory Rate: 10 to 29 per min(4); [place] Score: 15; Trauma Score: 12 ED Course: 08:16 Patient arrived in ED. ag5 08:16 Jordy Song MD is Private Physician. ag5 08:17 Anthony Grimes MD is Attending Physician. rn 08:34 Poonam Baeza RN is Primary Nurse. 08:35 Arm band placed on. iw 08:39 Triage completed. iw 08:45 Patient has correct armband on for positive identification. Bed in low position. Call sv light in reach. Side rails up X2. 08:50 Patient maintains SpO2 saturation greater than 95% on room air. Thermoregulation: warm sv blanket given to patient. 09:[address]. sv 09:04 Awaiting radiology results. sv 09:29 CT Head C Spine In Process Unspecified. EDMS 10:01 No provider procedures requiring assistance completed. Patient did not have IV access sv during this emergency room visit. Administered Medications: No medications were administered Intake: 08:30 PO: 0ml; Total: 0ml. sv 09:03 PO: 0ml; Total: 0ml. sv Output: 08:30 Urine: 0ml; Total: 0ml. sv 09:03 Urine: 0ml; Total: 0ml. sv Outcome: 09:39 Discharge ordered by . rn 10:01 Discharged to home via wheelchair, with family. sv 10:01 Condition: stable 10:01 Discharge instructions given to patient, family, Instructed on discharge instructions, follow up and referral plans. head injury precautions Demonstrated understanding of instructions, follow-up care, head injury precautions 10:02 Patient's length of stay was not longer than 2 hours. sv 10:02 Patient left the ED. sv Signatures: Dispatcher [employer] Jessika Mccloud RN RN sv Williams, Irene, RN RN iw Nieto, Roman, MD MD rn Gaskin, Ajare banner Poonam Baeza RN RN ah
--- NOTE | 2019-12-17 09:40 | EDPHYS ---
Physician Documentation [facility] Name: Shannen Zaldivar Age: 84 yrs Sex: Female : 1935 Arrival Date: 12/17/2019 Time: 08:16 Bed 4 Private MD: Jordy Song C ED Physician Anthony Grimes HPI: 12/17 08:28 This 84 yrs old Female presents to ER via Unassigned with complaints of Fall rn Injury, Head Injury-Adult. 08:28 Details of fall: The patient fell from an upright position, while walking. Onset: The rn symptoms/episode began/occurred just prior to arrival. Associated injuries: The patient sustained injury to the head. Severity of symptoms: At their worst the symptoms were mild, in the emergency department the symptoms are unchanged. The patient has not experienced similar symptoms in the past. Reports tripped, hit back of head on sheetrock, did not hit stud, not on blood thinner, no LOC, reports fell on her cane and has mild right hip pain, but does not feel broken. Reports mild headache. . Historical: - Allergies: 08:34 sulfamethoxazole-trimethoprim; iw 08:34 TRIMETHOPRIM; iw - Home Meds: 08:34 Synthroid 50 mcg Oral tab 1 tab once daily [Active]; tolterodine 4 mg Oral cp24 1 cap iw once daily [Active]; lisinopril 20 mg Oral tab 1 tab twice a day [Active]; atorvastatin 20 mg Oral tab 1 tab once daily [Active]; carvedilol 25 mg Oral tab 0.5 tab 2 times per day [Active]; amlodipine 5 mg tab 1 tab once daily [Active]; Cortef 5 mg Oral tab 2 tabs 2 times per day [Active]; desmopressin 10 mcg/spray (0.1 mL) Nasal spry 1 spray once daily [Active]; - PMHx: 08:34 Hyperlipidemia; Hypertension; Hypothyroidism; pituitary dysfunction; iw - PSHx: 08:34 Hysterectomy; Mastectomy; Knee surgery; iw - Immunization history:: Adult Immunizations up to date. - Coronavirus screen:: The patient has NOT traveled to [place] in the past 14 days. Proceed with normal triage process as indicated. The patient has NOT had contact with known/suspected case of Coronavirus? Proceed with normal triage procedures. - Immunization history: Last tetanus immunization: unknown. - Family history:: not pertinent. - Social history:: Smoking status: Patient denies any tobacco usage or history of. - Hospitalizations: : No recent hospitalization is reported. - Ebola Screening: : No symptoms or risks identified at this time. ROS: 08:28 Constitutional: Negative for fever, chills, and weight loss, Eyes: Negative for injury, rn pain, redness, and discharge, Neck: + mild neck pain Cardiovascular: Negative for chest pain, palpitations, and edema, Respiratory: Negative for shortness of breath, cough, wheezing, and pleuritic chest pain, Abdomen/GI: Negative for abdominal pain, nausea, vomiting, diarrhea, and constipation, Back: Negative for injury and pain, MS/Extremity: Negative for injury and deformity, Neuro: Negative for weakness, numbness, tingling, and seizure. Exam: 08:28 Constitutional: This is a well developed, well nourished patient who is awake, alert, rn and in no acute distress. Head/Face: Normocephalic, atraumatic. Eyes: Pupils equal round and reactive to light, extra-ocular motions intact. Periorbital areas with no swelling, redness, or edema. Neck: No midline cervical tenderness Chest/axilla: No rib tenderness Cardiovascular: Regular rate and rhythm. No pulse deficits. Respiratory: No increased work of breathing, no retractions or nasal flaring. Abdomen/GI: soft, non-tender MS/ Extremity: Pulses equal, no cyanosis. Neurovascular intact. Full, normal range of motion. Equal circumference. FROM bilateral hips. Neuro: Awake and alert, GCS 15, oriented to person, place, time, and situation. Cranial nerves II-XII grossly intact. Motor strength 5/5 in all extremities. Sensory grossly intact. Vital Signs: 08:30 BP 147 / 57; Pulse 58; Resp 16 S; Pulse Ox 98% on R/A; iw 08:30 Temp 97.8; ah 09:03 BP 118 / 46; Pulse 55; Resp 16; Temp 97.9; Pulse Ox 98% ; sv 09:38 BP 120 / 46; Pulse 59; Resp 16; Pulse Ox 98% ; sv Roslyn Coma Score: 08:30 Eye Response: spontaneous(4). Verbal Response: oriented(5). Motor Response: obeys iw commands(6). Total: 15. 09:03 Eye Response: spontaneous(4). Verbal Response: oriented(5). Motor Response: obeys sv commands(6). Total: 15. Trauma Score (Adult): 08:30 Eye Response: spontaneous(1); Verbal Response: oriented(1); Motor Response: obeys iw commands(2); Systolic BP: > 89 mm Hg(4); Respiratory Rate: 10 to 29 per min(4); [place] Score: 15; Trauma Score: 12 09:03 Eye Response: spontaneous(1); Verbal Response: oriented(1); Motor Response: obeys sv commands(2); Systolic BP: > 89 mm Hg(4); Respiratory Rate: 10 to 29 per min(4); [place] Score: 15; Trauma Score: 12 MDM: 08:17 Patient medically screened. rn 09:38 Differential diagnosis: closed head injury, contusion, sprain, strain. Data reviewed: rn vital signs, nurses notes, radiologic studies, CT scan. 09:39 Counseling: I had a detailed discussion with the patient and/or guardian regarding: the rn historical points, exam findings, and any diagnostic results supporting the discharge/admit diagnosis, radiology results, the need for outpatient follow up, to return to the emergency department if symptoms worsen or persist or if there are any questions or concerns that arise at home. Special discussion: Based on the patient's history, exam and DX evaluation, there is no indication for emergent intervention or inpatient TX. It is understood by the patient/guardian that if the SXs persist or worsen they need to return immediately for re-evaluation. I discussed with the patient/guardian in detail that at this point there is no indication for admission to the hospital. It is understood, however, that if the symptoms persist or worsen the patient needs to return immediately for re-evaluation. 12/17 08:28 Order name: CT Head C Spine; Complete Time: 09:38 rn Administered Medications: No medications were administered Disposition: 12/17/19 09:39 Discharged to Home. Impression: Superficial injury of head. - Condition is Stable. - Discharge Instructions: Head Injury, Adult. - Medication Reconciliation Form, Thank You Letter, Antibiotic Education, Prescription Opioid Use form. - Follow up: Private Physician; When: As needed; Reason: Recheck today's complaints, Re-evaluation by your physician. - Problem is new. - Symptoms have improved. Signatures: Dispatcher [employer] Jessika Mccloud RN RN sv Williams, Irene, RN RN iw Anthony Grimes MD MD internal grinder tender: (The following items were deleted from the chart) 10:02 09:39 12/17/2019 09:39 Discharged to Home. Impression: Superficial injury of head. sv Condition is Stable. Forms are Medication Reconciliation Form, Thank You Letter, Antibiotic Education, Prescription Opioid Use. Follow up: Private Physician; When: As needed; Reason: Recheck today's complaints, Re-evaluation by your physician. Problem is new. Symptoms have improved. rn
[2019-12-17 10:07] VITALS: O2SAT 98
[2019-12-17 10:09] VITALS: TEMP 97.9
[2019-12-17 10:10] VITALS: BP 120/46
== END 2019-12-17 10:02 | disposition home or self-care (01) ==
LOC: ER 08:13
DX: S00.90XA Unspecified superficial injury of unspecified part of head, initial encounter (principal); W01.198A Fall on same level from slipping, tripping and stumbling with subsequent striking against other object, initial encounter; Y93.01 Activity, walking, marching and hiking; Y92.9 Unspecified place or not applicable; I10 Essential (primary) hypertension; E03.9 Hypothyroidism, unspecified; E78.5 Hyperlipidemia, unspecified; Z88.2 Allergy status to sulfonamides; Z88.8 Allergy status to other drugs, medicaments and biological substances
CPT/HCPCS: 70450; 72125; 99284

== ENCOUNTER 2024-11-16 11:41 | Inpatient (IN) | payer OTHER ==
--- OUTSIDE RECORDS SUMMARY | 2024-11-16 11:44 | XMS REPORT | Continuity of Care Document ---
Author Name Unknown Address [address] [facility] [address] [place] [address] [facility] [address] [facility] [address] [place] [address] Care Team Providers Care Geographic Area Intelligence Officer Name Role Phone [email or web address] Attending Clinician Unavaila ble [email or web address] Admitting Clinician Unavaila ble Problems Condition Name Condition Details Condition Category Status Onset Date Resolution Date Last Treatment Date Treating Clinician Comments Source Pain in joint of left shoulder Pain in joint of left shoulder Diagnosis Active [facility] 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 Ordering Clinician Indication Dosage Frequency Signature (SIG) Comments Components Source Synthroid Synthroid Yes Aurelio Ball not defined [facility] Lisinopril Lisinopril Yes Aurelio Ball not defined [facility] Carvedilol Carvedilol Yes Aurelio Ball not defined [facility] Aspir-81 Aspir-81 Yes Aurelio Ball not defined [facility] B12 Folate B12 Folate Yes Aurelio Ball not defined [facility] Cortef Cortef Yes Aurelio Ball not defined [facility] Tolterodine Tartrate Tolterodine Tartrate Yes Aurelio Ball not defined [facility] Amlodipine Besylate Amlodipine Besylate Yes Aurelio Ball not defined [facility] atorvastati n atorvastati n Yes Aurelio Ball not defined [facility] D3 Adult D3 Adult Yes Aurelio Ball not defined [facility] Encounters Start Date/Time End Date/Time Encounter Type Admission Type Attending Clinicians Care Facility Care Department Encounter ID Source 2021-11-24 11:39:00 Outpatient [facility] [id number] [facility] 2023-08-29 00:00:00 2023-08-29 00:00:00 Outpatient [email or web address] [facility] [id number] [facility] 2020-06-17 10:30:00 2020-06-17 10:30:00 Outpatient [facility] [id number] [facility]
[2024-11-16] MEDS ORDERED: HYDROCORTISONE SUC 100 MG INJ ONE (13:08)
[2024-11-16] MEDS ORDERED: NA CHLORIDE 0.9% 500 ML ONE (13:08)
[2024-11-16 13:43] LABS: Absolute Basophils 0.1 K/uL (0-0.5); Absolute Lymphocytes (CBC) 1.3 K/uL (0.7-4.9); Absolute Monocytes 0.4 K/uL (0.1-1.3); Basophils % 0.9 % (0-1.3); Eosinophils % 0.4 % (0-4.4); Hematocrit 40.2 % (36.0-45.0); Hemoglobin 13.7 g/dL (12.0-15.0); Lymphocytes % 18.9 % (15.3-44.8); MCH 30.6 pg (27.0-35.0); MCHC 34.1 g/dL (32.0-36.0); MCV 89.8 fL (80-100); MPV 8.5 fL (7.6-11.3); Monocytes % 5.5 % (3.3-12.3); Neutrophils % 74.3 % (41.7-73.7); Platelets 316 thou/uL (152-406); RBC Red Blood Cell Count 4.47 M/uL (3.86-4.86); Red Cell Distribution Width 12.8 % (12.1-15.2)
[2024-11-16 13:47] LABS: PT Prothrombin Time 11.7 SECONDS (9.4-12.5); Protime INR 1.12
--- NOTE | 2024-11-16 13:49 | RAD REPORT ---
EXAM: Chest Single View HISTORY: nausea COMPARISON: None. FINDINGS: LUNGS/PLEURA: The lungs are clear. No pleural effusions or pneumothorax. No pulmonary edema. MEDIASTINUM: The mediastinal silhouette is within normal limits. CARDIAC: The cardiac silhouette is within normal limits. UPPER ABDOMEN: No significant abnormality. BONES: No acute abnormality. LINES/TUBES/OTHER: Right breast prosthesis. IMPRESSION: No evidence of acute cardiopulmonary disease.
[2024-11-16 13:58] LABS: SARS-CoV-2 Antigen CONTROL BLUE LINE VIS/BG OK; SARS-CoV-2 Antigen Rapid Res Negative (Negative)
[2024-11-16 14:07] LABS: Albumin 3.6 g/dL (3.4-5.0); Anion Gap 12.6 mEq/L (5.0-15.0); Bilirubin Direct 0.3 mg/dL (0-0.2); Bilirubin Indirect, Calculated 0.7 mg/dL (0.2-0.8); Globulin 3.6 g/dL (2.3-3.5); Potassium 3.6 mEq/L (3.5-5.1); Protein, Total 7.2 g/dL (6.4-8.2); Troponin High Sensitivity 7.4 pg/mL (<58.9)
--- NOTE | 2024-11-16 14:39 | ER ---
Nurse's Notes [facility] Name: Shannen Zaldivar Age: 88 yrs Sex: Female : 1935 Arrival Date: 11/16/2024 Time: 11:41 Bed 13 Private MD: Diagnosis: Nausea;Hypo-osmolality and hyponatremia Presentation: 11/16 12:17 Chief complaint: Patient states: feeling nauseated and anorexic x 1 month reports kl "burping ". Coronavirus screen: Vaccine status: Patient reports receiving the 2nd dose of the covid vaccine. Ebola Screen: Patient negative for fever greater than or equal to 101.5 degrees Fahrenheit, and additional compatible Ebola Virus Disease symptoms. Initial Sepsis Screen: Does the patient meet any 2 criteria? No. Patient's initial sepsis screen is negative. Does the patient have a suspected source of infection? No. Patient's initial sepsis screen is negative. Risk Assessment: Do you want to hurt yourself or someone else? Patient reports no desire to harm self or others. Onset of symptoms. 12:17 Method Of Arrival: Wheelchair kl 12:17 Acuity: DARNELL 3 kl Triage Assessment: 12:21 General: Appears uncomfortable, ill, Behavior is calm, cooperative. Pain: Denies pain. kl GI: Reports anorexia, gaseousness, nausea. Historical: - Allergies: 12:19 TRIMETHOPRIM; kl 12:19 sulfamethoxazole-trimethoprim; kl - PMHx: 12:19 Hyperlipidemia; Hypertension; Hypothyroidism; pituitary dysfunction; kl - PSHx: 12:19 brain surgery (pituitary dysfunction); kl - Immunization history:: Adult Immunizations up to date. - Infectious Disease History:: Denies. - Social history:: Smoking status: Patient denies any tobacco usage or history of. Screenin:12 Abuse screen: Denies threats or abuse. Denies injuries from another. Nutritional ph screening: No deficits noted. Tuberculosis screening: No symptoms or risk factors identified. 13:12 [facility] ED Fall Risk Assessment (Adult) History of falling in the last 3 months, ph including since admission No falls in past 3 months (0 pts) Confusion or Disorientation No (0 pts) Intoxicated or Sedated No (0 pts) Impaired Gait No (0 pts) Mobility Assist Device Used No (0 pt) Altered Elimination No (0 pt) Score/Fall Risk Level 0 - 2 = Low Risk Oriented to surroundings, Maintained a safe environment, Hourly rounding (assess needs \\T\\ fall precautionary measures) done. Assessment: 13:42 General: Appears in no apparent distress. comfortable, Behavior is calm, cooperative, ph appropriate for age. Pain: Denies pain. Neuro: Level of Consciousness is awake, alert, obeys commands, Oriented to person, place, time, situation. Cardiovascular: Capillary refill < 3 seconds in bilateral fingers Patient's skin is warm and dry. Respiratory: Airway is patent Respiratory effort is even, unlabored, Respiratory pattern is regular, symmetrical. GI: Reports intolerance of food, nausea, Patient currently denies abdominal pain, vomiting. : No signs and/or symptoms were reported regarding the genitourinary system. Derm: Skin is pink, warm \\T\\ dry. 15:02 Reassessment: Patient appears in no apparent distress at this time. Patient and/or ph family updated on plan of care and expected duration. Pain level reassessed. Patient is alert, oriented x 3, equal unlabored respirations, skin warm/dry/pink. 17:29 Reassessment: Report faxed to 4th floor. ph Vital Signs: 12:17 BP 131 / 77; Pulse 63; Resp 18; Temp 97(TE); Pulse Ox 97% on R/A; Weight 59.42 kg (R); kl Height 5 ft. 0 in. ; 13:47 BP 135 / 51; Pulse 56; Resp 18; Pulse Ox 98% on R/A; ph 15:01 BP 139 / 67; Pulse 57; Resp 18; Pulse Ox 98% on R/A; ph 16:30 BP 118 / 62; Pulse 58; Resp 18; Pulse Ox 97% on R/A; ph 17:59 BP 129 / 61; Pulse 57; Resp 18; Temp 97.5; Pulse Ox 98% on R/A; ph 12:17 Body Mass Index 25.58 (59.42 kg, 152.4 cm) ED Course: 11:48 Patient arrived in ED. ra3 11:51 Delvin Yeboah PA is PHCP. cp 11:51 Delvin Walsh MD is Attending Physician. cp 12:19 Triage completed. kl 12:40 Angelique Lock RN is Primary Nurse. ph 13:13 Arm band placed on Patient placed in an exam room. ph 13:13 Patient has correct armband on for positive identification. Bed in low position. Call ph light in reach. Side rails up X 1. Pulse ox on. NIBP on. Door closed. Noise minimized. Warm blanket given. 13:24 XRAY Chest (1 view) In Process Unspecified. EDMS 13:43 Initial lab(s) drawn, by me, sent to lab. EKG done, by ED staff, reviewed by Delvin Yeboah ph ASHWINI COVID swab sent to lab. Flu and/or RSV swab sent to lab. Inserted saline lock: 22 gauge in right antecubital area, using aseptic technique. Blood collected. Flushed with 10 mL NS. 13:48 SARS RAPID Sent. ph 13:48 Influenza Screen (a \\T\\ B) Sent. ph 13:48 Lipase Sent. ph 13:49 Basic Metabolic Panel Sent. ph 13:49 LFT's Sent. ph 13:49 Magnesium Sent. ph 13:49 Troponin HS Sent. ph 14:38 Jordy Song MD is Hospitalizing Provider. cp 15:02 No provider procedures requiring assistance completed. Patient admitted, IV remains in ph place. 15:02 Urine collected: clean catch specimen, gerardo colored. ph 15:48 CT Head Brain wo Cont In Process Unspecified. EDMS 15:48 CT Abd/Pelvis - IV Contrast Only In Process Unspecified. EDMS Administered Medications: 13:48 Drug: NS 0.9% IV 500 ml 500 ml IV at 1 bolus once; to be given as a bolus over 60 ph minutes Volume: 500 ml; Route: IV; Rate: 1 bolus; Site: right antecubital; 15:03 Follow up: Response: No adverse reaction; IV Status: Completed infusion; IV Intake: ph 500ml 13:48 Drug: Solu-CORTEF IVP 100 mg IVP once Route: IVP; Site: right antecubital; ph 15:03 Follow up: Response: No adverse reaction ph Medication: 13:13 VIS not applicable for this client. ph Intake: 15:03 IV: 500ml; Total: 500ml. ph Outcome: 14:39 Decision to Hospitalize by Provider. cp 18:00 Admitted to Med/surg accompanied by tech, via stretcher, with chart, ph 18:00 Condition: stable 18:00 Patient left the ED. ph Signatures: Dispatcher [employer] EDMS Fely Hoang, RN RN Angelique Gaytan RN RN Delvin Del Rio PA PA cp Alva, Ruby ra3
--- NOTE | 2024-11-16 14:39 | EDPHYS ---
Physician Documentation [facility] Name: Shannen Zaldivar Age: 88 yrs Sex: Female : 1935 Arrival Date: 11/16/2024 Time: 11:41 Bed 13 Private MD: ED Physician Delvin Walsh HPI: 11/16 12:50 This 88 yrs old Female presents to ER via Wheelchair with complaints of Decreased cp Appetite - sent by pcp. 12:50 Onset: The symptoms/episode began/occurred 1 month(s) ago. cp 12:50 Associated signs and symptoms: Pertinent positives: nausea and general weakness and cp anorexia, Pertinent negatives: abdominal pain, chest pain, constipation, diarrhea, fever, active vomiting. Historical: - Allergies: 12:19 TRIMETHOPRIM; kl 12:19 sulfamethoxazole-trimethoprim; kl - PMHx: 12:19 Hyperlipidemia; Hypertension; Hypothyroidism; pituitary dysfunction; kl - PSHx: 12:19 brain surgery (pituitary dysfunction); kl - Immunization history:: Adult Immunizations up to date. - Infectious Disease History:: Denies. - Social history:: Smoking status: Patient denies any tobacco usage or history of. ROS: 12:55 Constitutional: Positive for poor PO intake, Negative for body aches, chills, fever, cp 12:55 Eyes: Negative for injury, pain, redness, and discharge, cp 12:55 ENT: Negative for drainage from ear(s), ear pain, sore throat, difficulty swallowing, difficulty handling secretions, 12:55 Cardiovascular: Negative for chest pain, edema, palpitations, 12:55 Respiratory: Negative for cough, shortness of breath, wheezing, 12:55 Abdomen/GI: Positive for nausea, anorexia, Negative for abdominal pain, diarrhea, constipation, black/tarry stool, rectal bleeding, 12:55 : Negative for urinary symptoms, 12:55 Neuro: Positive for weakness, Negative for altered mental status, dizziness, headache, numbness, syncope, 12:55 All other systems are negative, Exam: 13:00 Constitutional: The patient appears in no acute distress, alert, awake, cp non-diaphoretic, non-toxic, well developed, well nourished, uncomfortable, 13:00 Head/Face: Normocephalic, atraumatic. cp 13:00 Eyes: Periorbital structures: appear normal, Pupils: equal, round, and reactive to light and accomodation, Extraocular movements: intact throughout, Conjunctiva: normal, no exudate, no injection, Sclera: no appreciated abnormality, Lids and lashes: appear normal, bilaterally, 13:00 ENT: External ear(s): are unremarkable, Nose: is normal, Mouth: Lips: moist, Oral mucosa: moist, Posterior pharynx: Airway: no evidence of obstruction, patent, 13:00 Neck: ROM/movement: is normal, is supple, without pain, no range of motions limitations, 13:00 Chest/axilla: Inspection: normal, 13:00 Cardiovascular: Rate: normal, Rhythm: regular, Edema: is not appreciated, JVD: is not appreciated, 13:00 Respiratory: the patient does not display signs of respiratory distress, Respirations: normal, no use of accessory muscles, no retractions, labored breathing, is not present, Breath sounds: are clear throughout, no decreased breath sounds, no stridor, no wheezing, 13:00 Abdomen/GI: Inspection: abdomen appears normal, Bowel sounds: active, all quadrants, Palpation: abdomen is soft and non-tender, in all quadrants, 13:00 Back: pain, is absent, ROM is normal, 13:00 Skin: no rash present. 13:00 Neuro: Orientation: to person, place \T\ time. Mentation: is normal, Motor: moves all fours, no focal deficits, Sensation: no obvious gross deficits, 13:55 ECG was reviewed by the Attending Physician. cp Vital Signs: 12:17 BP 131 / 77; Pulse 63; Resp 18; Temp 97(TE); Pulse Ox 97% on R/A; Weight 59.42 kg (R); kl Height 5 ft. 0 in. ; 13:47 BP 135 / 51; Pulse 56; Resp 18; Pulse Ox 98% on R/A; ph 15:01 BP 139 / 67; Pulse 57; Resp 18; Pulse Ox 98% on R/A; ph 16:30 BP 118 / 62; Pulse 58; Resp 18; Pulse Ox 97% on R/A; ph 17:59 BP 129 / 61; Pulse 57; Resp 18; Temp 97.5; Pulse Ox 98% on R/A; ph 12:17 Body Mass Index 25.58 (59.42 kg, 152.4 cm) kl MDM: 12:31 Medical Screening Exam initiated cp 13:00 Differential diagnosis: pneumonia UTI, sepsis, acute OK. cp 14:40 Data reviewed: vital signs, nurses notes, lab test result(s), EKG, radiologic studies, cp plain films. 14:40 Management of patient was discussed with the following: Primary Care Provider: DR Nohemi irving who requests CT head and abdomen/pelvis and will admit after discussion. I considered the following discharge prescriptions or medication management in the emergency department Medications were administered in the Emergency Department. See MAR. Independent interpretation of the following test(s) in the Emergency Department EKG: See my EKG interpretation above. Care significantly affected by the following chronic conditions: Hypertension, pituitary dysfunction. Counseling: I had a detailed discussion with the patient and/or guardian regarding the historical points, exam findings, and any diagnostic results supporting the discharge/admit diagnosis, lab results, radiology results, the need for further work-up and treatment in the hospital. Response to treatment: the patient's symptoms have mildly improved after treatment. 11/16 12:45 Order name: Basic Metabolic Panel; Complete Time: 14:07 cp 11/16 14:08 Interpretation: Normal except: NA 124; CL 91; GFR 67. cp 11/16 12:45 Order name: CBC with Diff; Complete Time: 13:56 cp 11/16 13:56 Interpretation: Normal except: LAMIN% 74.3. cp 11/16 12:45 Order name: LFT's; Complete Time: 14:07 cp 11/16 14:08 Interpretation: Normal except: BILID 0.3; GLOB 3.6; A/G 1.0. cp 11/16 12:45 Order name: Magnesium; Complete Time: 14:07 cp 11/16 12:45 Order name: PT-INR; Complete Time: 13:56 cp 11/16 12:45 Order name: Troponin HS; Complete Time: 14:07 cp 11/16 12:45 Order name: Lipase; Complete Time: 14:07 cp 11/16 12:45 Order name: Urinalysis w/ reflexes; Complete Time: 16:09 cp 11/16 16:09 Interpretation: Normal except: UKET 1+. cp 11/16 12:45 Order name: Influenza Screen (a \T\ B); Complete Time: 14:07 cp 11/16 12:45 Order name: SARS RAPID; Complete Time: 14:07 cp 11/16 12:46 Order name: Cortisol; Complete Time: 14:23 cp 11/16 16:57 Order name: Basic Metabolic Panel EDMS 11/16 16:57 Order name: Basic Metabolic Panel EDMS 11/16 16:57 Order name: CBC with Automated Diff EDMS 11/16 16:57 Order name: CBC with Automated Diff EDMS 11/16 16:57 Order name: Troponin High Sensitivity EDMS 11/16 12:45 Order name: XRAY Chest (1 view); Complete Time: 13:56 cp 11/16 14:37 Order name: CT Head Brain wo Cont; Complete Time: 16:09 cp 11/16 14:37 Order name: CT Abd/Pelvis - IV Contrast Only; Complete Time: 16:09 cp 11/16 16:10 Interpretation: Report reviewed. 11/16 16:57 Order name: EKG Electrocardiogram EDMS 11/16 16:57 Order name: EKG Electrocardiogram EDMS 11/16 16:57 Order name: EKG Electrocardiogram EDMS 11/16 16:57 Order name: EKG Electrocardiogram EDMS 11/16 12:45 Order name: Cardiac monitoring; Complete Time: 13:48 cp 11/16 12:45 Order name: EKG - Nurse/Tech; Complete Time: 13:48 cp 11/16 12:45 Order name: IV Saline Lock; Complete Time: 13:48 cp 11/16 12:45 Order name: Labs collected and sent; Complete Time: 13:48 cp 11/16 12:45 Order name: O2 Per Protocol; Complete Time: 13:48 cp 11/16 12:45 Order name: O2 Sat Monitoring; Complete Time: 13:48 cp EC:55 Rate is 57 beats/min. Rhythm is regular. IN interval is normal. QRS interval is normal. cp QT interval is normal. Interpreted by me. Reviewed by me. Administered Medications: 13:48 Drug: NS 0.9% IV 500 ml 500 ml IV at 1 bolus once; to be given as a bolus over 60 ph minutes Volume: 500 ml; Route: IV; Rate: 1 bolus; Site: right antecubital; 15:03 Follow up: Response: No adverse reaction; IV Status: Completed infusion; IV Intake: ph 500ml 13:48 Drug: Solu-CORTEF IVP 100 mg IVP once Route: IVP; Site: right antecubital; ph 15:03 Follow up: Response: No adverse reaction ph Disposition Summary: 11/16/24 14:39 Hospitalization Ordered Notes: Hospitalization Status: Inpatient Admission cp Provider: Jordy Song cp Location: Telemetry/MedSurg (Inpatient) cp Condition: Stable cp Problem: new cp Symptoms: have improved cp Bed/Room Type: Standard cp Room Assignment: 411(11/16/24 17:00) zl Diagnosis - Nausea cp - Hypo-osmolality and hyponatremia cp Forms: - Medication Reconciliation Form cp - SBAR form cp - Leadership Thank You Letter cp Addendum: 11/20/2024 07:27 Co-signature as Attending Physician, Delvin Walsh MD I agree with the assessment and c larkin plan of care. Signatures: Dispatcher [employer] Fely Arzola RN RN kl Anderson, Corey, MD MD cha Hall, Patricia, RN RN ph Page, Corey, PA PA cp Lamb, Zachary, RN RN zl Corrections: (The following items were deleted from the chart) 11/16 12:46 12:46 BASIC METABOLIC PANEL+C.LAB.BRZ ordered. EDMS EDMS 12:46 12:46 CBC+H.LAB.BRZ ordered. EDLA EDMS 12:46 12:46 HEPATIC FUNCTION+C.LAB.BRZ ordered. EDLA EDMS 12:46 12:46 MAGNESIUM+C.LAB.BRZ ordered. EDLA EDMS 12:46 12:46 PROTIME (+INR)+COAG.LAB.BRZ ordered. EDLA EDMS 12:46 12:46 Troponin High Sensitivity+C.LAB.BRZ ordered. EDMS EDMS 12:46 12:46 LIPASE+C.LAB.BRZ ordered. EDMS EDMS 12:46 12:46 Urinalysis+U.LAB.BRZ ordered. EDLA EDMS 12:46 12:46 Influenza Screen (A \T\ B)+BA.LAB.BRZ ordered. EDMS EDMS 12:46 12:46 SARS-COV-2 Antigen Rapid+I.LAB.BRZ ordered. EDMS EDMS 12:46 12:46 Chest Single View+RAD.RAD.BRZ ordered. EDMS EDMS 12:46 12:46 Cortisol+C.LAB.BRZ ordered. EDMS EDMS 16:59 14:39 cp zl 17:00 16:59 211 zl zl
[2024-11-16 15:11] LABS: Specific Gravity 1.011 (1.005-1.030); Sqamous Epithelial <5 /HPF (None Seen); Urine Bacteria None Seen /HPF (<20); Urine Bilirubin NEGATIVE (Negative); Urine Blood Negative (Negative); Urine Clarity Clear (Clear); Urine Color Light-Yellow (Yellow); Urine Culture Reflex Order NOT NEEDED; Urine Glucose NEGATIVE (Negative); Urine Ketones 1+ (Negative); Urine Microscopic Reflex YN ORDER UMIC; Urine Mucus Slight /HPF (None Seen); Urine Nitrite NEGATIVE (Negative); Urine Protein NEGATIVE (Negative); Urine RBC <5 /HPF (None Seen); Urine Urobilinogen Normal (Normal); Urine WBC <5 /HPF (<5)
--- NOTE | 2024-11-16 15:53 | RAD REPORT ---
EXAMINATION: CT HEAD WITHOUT CONTRAST CLINICAL INDICATION: Female, 88 years old.nausea, decreased appetite TECHNIQUE: Axial CT images from the skull base to the vertex without intravenous contrast. Coronal an d sagittal reformatted images were created from the data set. One or more of the following dose reduction techniques were used: Automated exposure control, adjustment of the mA and/or kV according to patient size, and/or iterative reconstruction. Unless otherwise specified, incidental findings do not require dedicated imaging follow-up. [id number]. COMPARISON: No prior exam. FINDINGS: INTRACRANIAL: No acute intracranial hemorrhage. No hydrocephalus. No mass effect or midline shift. Mi ld chronic small vessel ischemic changes.Mild cerebral atrophy. VASCULATURE: No visualized abnormalities in the arteries or dural venous sinuses. SCALP/SKULL: No significant soft tissue or osseous abnormalities. SINUSES: The visualized paranasal sinuses and mastoid air cells are predominantly clear. IMPRESSION: No acute intracranial abnormality.
--- NOTE | 2024-11-16 16:01 | RAD REPORT ---
EXAMINATION: CT ABDOMEN AND PELVIS WITH CONTRAST CLINICAL INDICATION: Female, 88 years old.nausea, decreased appetite TECHNIQUE: CT abdomen and pelvis was performed, after the administration of IV contrast, as per [facility] protocol. Axial, sagittal and coronal reconstructions were obtained. One or more of the following dose reduction techniques were used: Automated exposure control, adjustment of the mA and/o r kV according to patient size, and/or iterative reconstruction. Unless otherwise specified, incidental findings do not require dedicated imaging follow-up. [id number]. COMPARISON: No prior exam. FINDINGS: LOWER CHEST: No acute process identified.No significant pericardial effusion. Coronary artery calcifi cations present. Breast prostheses. UPPER GI: No significant abnormality. LIVER: No significant focal abnormality. GALLBLADDER/BILE DUCTS: No biliary ductal dilatation.? PANCREAS: 5 mm cystic lesion at the pancreatic body may represent a small intraductal papillary mucin ous neoplasm. Twelve-month follow-up MRCP could be considered. SPLEEN: Unremarkable. ADRENALS: No adrenal masses. KIDNEYS AND URETERS: No hydronephrosis.Low density and/or too small to characterize renal lesions whi ch are statistically benign. Nonobstructing stone left kidney. ABDOMINAL AORTA AND OTHER VESSELS: Moderate atherosclerotic changes without aortic aneurysm. PERITONEUM: No abnormal free fluid. No free air. LYMPH NODES: No pathologic lymphadenopathy. ABDOMINAL WALL: Ventral abdominal wall laxity. SMALL BOWEL/COLON: Small bowel has normal course and caliber. No colonic wall thickening or pericolon ic inflammatory changes.Normal appendix. Mild diverticulosis without diverticulitis. URINARY BLADDER: Underdistended but grossly unremarkable. REPRODUCTIVE ORGANS: Uterus surgically absent. No adnexal abnormality. MUSCULOSKELETAL: Multilevel degenerative changes in the spine. No acute fracture. Degenerative change s are present at the hips. ADDITIONAL FINDINGS: None. IMPRESSION: No acute or significant abnormalities seen in the abdomen or pelvis. Incidental findings as noted abo ve.
[2024-11-16] MEDS ORDERED: ONDANSETRON 4 MG/2 ML VIAL IV PRN (16:52)
[2024-11-16 18:14] VITALS: BMI 3683.7
[2024-11-16] MEDS: NA CHLORIDE 0.9% 1,000 ML IV SCH (18:31)
[2024-11-17] MEDS: HYDROCORTISONE SUC 100 MG INJ IV SCH ×2 (00:01→20:08)
[2024-11-17 06:20] LABS: Absolute Lymphocytes (CBC) 0.8 K/uL (0.7-4.9); Absolute Monocytes 0.1 K/uL (0.1-1.3); Absolute Neutrophil 7.1 K/uL (1.8-8.0); Basophils % 0.1 % (0-1.3); Hematocrit 37.2 % (36.0-45.0); Hemoglobin 12.6 g/dL (12.0-15.0); Lymphocytes % 10.5 % (15.3-44.8); MCH 30.6 pg (27.0-35.0); MCHC 33.9 g/dL (32.0-36.0); MCV 90.3 fL (80-100); MPV 8.6 fL (7.6-11.3); Monocytes % 0.9 % (3.3-12.3); Neutrophils % 88.5 % (41.7-73.7); Nucleated Red Blood Cells % 0.1 % (0-0); Platelets 289 thou/uL (152-406); RBC Red Blood Cell Count 4.12 M/uL (3.86-4.86); Red Cell Distribution Width 12.6 % (12.1-15.2)
[2024-11-17 06:31] LABS: Anion Gap 11.9 mEq/L (5.0-15.0); Potassium 3.9 mEq/L (3.5-5.1)
[2024-11-17] MEDS: ASPIRIN EC 81 MG TAB PO SCH (08:29)
[2024-11-17] MEDS ORDERED: SODIUM CHLORIDE 0.9% 10ML INJ IV PRN (11:34)
[2024-11-17] MEDS: PANTOPRAZOLE 40 MG INJ IVP ONE (12:09)
[2024-11-17] MEDS: ENOXAPARIN 30 MG/0.3 ML SQ SCH (17:00)
--- NOTE | 2024-11-17 19:49 | HP ---
Date of Admission: 11/16/2024 Chief Complaint: Nausea and not able to eat. History Of Present Illness: This is an 88-year-old female patient who came into emergency room yeste rday with intractable nausea, going on at least for the last month or so and progressively it has got ten worse, wherein last 3 days she hardly was able to eat or drink anything, so she contacted me yest kenia and was instructed to come to emergency room. After she came into ER, she was evaluated and ad mitted to the hospital. Her sodium level was very low at 124. She takes chronic oral steroid therap y on outpatient basis and after she came into ER, she was started on IV hydrocortisone. She was also started on IV fluid. This morning for breakfast, her appetite was still poor, but she ate better th an what she has done in last few days as she reports. She denies any abdominal pain except occasiona lly she has some right-sided abdominal pain she says. No vomiting. No fever. No chills. No consti pation or diarrhea. Her nausea is more or less constant and not related to meal time. Allergies: TO IODINE CAUSING NAUSEA AND VOMITING, SULFA CAUSING NAUSEA AND DIARRHEA, CLARITHROMYCIN CAUSING BAD TASTE IN MOUTH, METOPROLOL MADE HER FEEL FUNNY IN HER HEAD AND CEFDINIR CAUSED DIARRHEA. Medications: Amlodipine 5 mg daily, aspirin 81 mg daily, carvedilol 3.125 mg daily at bedtime. desm opressin 1 spray nasally daily, famotidine 40 mg daily, fluticasone nasal spray 1 spray each nostril 2 times a day, hydrocortisone 5 mg takes 2 tablets 2 times a day, levothyroxine 50 mcg daily from Mon through Monday and not on Sundays, lisinopril 20 mg 2 times a day, potassium chloride 99 mg hal ly, Phenergan 25 mg 4 times a day as needed for nausea and vomiting, Detrol 4 mg daily, atorvastatin 20 mg daily. Review of Systems: GI: As mentioned above. All other systems reviewed and negative. Past Medical History: Significant for hyperlipidemia, hypothyroidism, gastroesophageal reflux diseas e, hypertension, anxiety, depression, sleep-related leg cramps, urge incontinence, diverticulosis, hy ponatremia, chronic steroid therapy, hypopituitarism, adrenal insufficiency, osteoarthritis at multip le sites, and osteopenia. Past Surgical History: Brain surgery, hysterectomy, back surgery, and breast augmentation in 1979 an d 1999. Family History: Mother had asthma and coronary artery disease. Sister had hypertension. Son o f lymphoma. Social History: Negative for smoking and alcohol use. Physical Examination: Vital Signs: This morning, temperature 98.3, pulse 58, respiratory rate 18, blood pressure 119/59, o xygen saturation 94% on room air. Height 5 feet, weight 131 pounds. General: Awake, alert, oriented, not in distress. HEENT: Head atraumatic, normocephalic. Conjunctivae nonerythematous. Sclerae white. Mouth, no thr ush or edema noted. Ears/Nose, no mass, lesion, discharge noted. Neck: Supple. No JVD, lymph nodes, bruit, thyromegaly noted. Lungs: Bilateral good equal air entry. Clear to auscultation. No rhonchi. No rales. Heart: Normal heart sounds, no murmur or gallop. Abdomen: Soft, bowel sounds normal. No guarding, rigidity, tenderness, mass, hepatosplenomegaly, dis tention, or bruit noted. Extremities: No leg edema. No calf tenderness. Skin: No rash, ulcer, cellulitis. Lymphatics: No lymph node enlargement in neck, supraclavicular, infraclavicular region. Neuro: No focal neurological deficit. Chest: Unremarkable. External Genitalia: Deferred. Rectal: Deferred. Laboratory Data: Yesterday, WBC 6.8, hemoglobin 13.7, platelets 316. This morning, WBC 8, hemoglobi n 12.6, platelets 289. Chemistry yesterday, sodium 124, potassium 3.6, chloride 91, bicarb 24, BUN 1 5, creatinine 0.84, glucose 95. Liver function tests are unremarkable. Lipase 26. Random cortisol level 29.27. Repeat troponin 7.5. This morning, sodium 128, potassium 3.9, chloride 96, bicarb 24, BUN 14, creatinine 0.62, glucose 104. Urinalysis normal. Chest x-ray, no acute cardiopulmonary nuñez ges. CAT scan of the head was negative for any acute intracranial changes. CAT scan of the abdomen and pelvis was negative for any acute changes. It did show a 5 mm cystic lesion in the pancreatic froilan dy, moderate atherosclerosis of aorta without aortic aneurysm, diverticulosis without evidence of div erticulitis. Impression: 1.Hyponatremia. 2.Intractable nausea. 3.Adrenal insufficiency. 4.Hypopituitarism. 5.Gastroesophageal reflux disease. 6.Hypertension. 7.Hyperlipidemia. 8.Hypothyroidism. 9.Osteoarthritis at multiple sites. 10.Anxiety. 11.Depression. 12.Overactive bladder. 13.Hypothyroidism. Plan: We will go ahead and admit the patient to hospital for further evaluation and management of th is problem. The patient is appropriate for inpatient and is expected to spend 2 midnights in the [facility]. For hyponatremia, this is likely due to adrenal insufficiency, some component could be volume depletion also, and we will go ahead and treat it with IV fluid hydration and IV steroid, hydrocorti sone 100 mg every 8 hours was started and starting today, I will reduce the dose to twice a day. We will continue to monitor electrolyte and renal function. Continue current IV fluid. For nausea, sym ptomatic treatment will be given at this time. No need for further intervention. We need to conside r gallbladder etiology. I will order ultrasound of right upper quadrant as well as HIDA scan to be d one tomorrow as part of further investigation. For gastroesophageal reflux disease, we will continue her famotidine and had IV pantoprazole. For hypertension, we will hold her blood pressure medicatio n at this time considering her blood pressure readings. Last night, her heart rate had dropped down to like 38 beats per minute, so we will not give any carvedilol to her any more. For hypothyroidism, continue levothyroxine per order. For adrenal insufficiency, on chronic steroid therapy. Currently , she will be getting IV steroid and we will wean that off every day or so until we get her back to h er oral steroid therapy. For overactive bladder, no need for further intervention. Total time spent was 80 minutes including review of last office visit record from 10/14/2024, communi cation with the emergency room provider, review of emergency room visit record, and performing today' s evaluation and management. DVT prophylaxis will be given using Lovenox per order. PARAMJIT/MODL Voice ID: [id number]
[2024-11-17] MEDS: FLUTICASONE PROPIONATE 50 MCG IH SCH (20:07)
[2024-11-17] MEDS: ATORVASTATIN 20 MG TAB PO SCH (20:07)
[2024-11-18 01:39] VITALS: O2SAT 96
[2024-11-18 06:31] LABS: Anion Gap 9.7 mEq/L (5.0-15.0); Potassium 2.7 mEq/L (3.5-5.1)
--- NOTE | 2024-11-18 08:04 | RAD REPORT ---
EXAM: Right upper quadrant ultrasound. CLINICAL HISTORY: nausea COMPARISON: 11/16/2024, 10/27/2017 FINDINGS: Gallbladder: Normal. Bile ducts: No intrahepatic or extrahepatic biliary dilatation. Common bile duct measures 4 mm. Limited imaging of the liver shows no concerning finding. Hypoechoic lesion in the body the pancreas is noted from indeterminant measuring 5 mm. IMPRESSION: Negative gallbladder/biliary tree findings. Small hypoechoic lesion measuring 4-5 mm in the pancreas is indeterminate. MRI pancreatic protocol co uld be performed for further workup if clinically needed.
[2024-11-18] MEDS: DESMOPRESSIN ACETATE NAS SCH (09:00)
[2024-11-18] MEDS: TOLTERODINE LA 4 MG CAP PO SCH (09:00)
[2024-11-18] MEDS: FAMOTIDINE 40 MG PO SCH (09:00)
--- NOTE | 2024-11-18 09:09 | RAD REPORT ---
EXAMINATION: NUCLEAR MEDICINE HIDA SCAN WITH GALLBLADDER EJECTION FRACTION CLINICAL INDICATION: Female, 88 years old. nausea TECHNIQUE: Hepatobiliary imaging was acquired over the abdomen for 60 minutes following intravenous a dministration of radiotracer. Gallbladder ejection fraction determination was then performed utilizing synthetic 1.2 mgm CCK over a slow 30 minute infusion. RADIOPHARMACEUTICAL: 5.8 mCi Technetium 99m Mebrofenin. COMPARISON: 11/16/2024 FINDINGS: Normal hepatic uptake and excretion with appropriate clearance of background blood pool activity. Normal visualization of biliary and small bowel activity. Gallbladder visualizes within normal time limits. The calculated ejection fraction is 17% (normal greater than 35%). 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 No delay in visualization of the gallbladder, biliary tree, or duodenum. Ejection fraction is 17% (normal greater than 35%). Subjective patient pain assessment as detailed above.
[2024-11-18] MEDS: PANTOPRAZOLE 40 MG INJ IVP SCH (09:33)
[2024-11-18] MEDS: LEVOTHYROXINE SOD 0.05 MG TABLET PO SCH (09:33)
[2024-11-18] MEDS: POTASSIUM CL SA 10 MEQ TAB PO ONE (11:18)
[2024-11-18] MEDS: POTASSIUM 25 MEQ EFFERV TAB PO ONE ×2 (11:43→15:41)
[2024-11-18 16:27] VITALS: BP 145/59; TEMP 97.9
--- NOTE | 2024-11-18 17:41 | DS ---
Date of Discharge: 11/18/2024 Disposition: Discharged to go home. Physical Examination: HEENT: Unremarkable. Lungs: Clear to auscultation. Heart: Sounds normal. Abdomen: Soft. Bowel sounds normal. No guarding, rigidity, tenderness, distention. Extremities: No leg edema. Laboratory Data: Upon admission, sodium 124, potassium 3.6, chloride 91, bicarb 24, BUN 15, creatini ne 0.84, glucose 95. Liver function tests unremarkable. Initial troponin 7.4, second troponin 7.5. Random cortisol level done in the emergency room was 29.27. Yesterday, sodium level was 128, potass ium 3.9. Today, sodium level 141 potassium 2.7, chloride 109, bicarb 25, BUN 12, creatinine 0.72, gl ucose 107. For CBC upon admission, WBC 6.8, hemoglobin 13.7, platelets 316. Her CAT scan of the hea d was negative for any acute intracranial changes. CAT scan of the abdomen and pelvis was negative f or any acute changes, but it did show 5 mm cystic lesion in the pancreatic body, moderate atheroscler osis of aorta without any aortic aneurysm and diverticulosis without diverticulitis. Final Diagnoses: 1.Hyponatremia. 2.Adrenal insufficiency. 3.Hypokalemia. 4.Intractable nausea. 5.Hypopituitarism. 6.Gastroesophageal reflux disease. 7.Hypertension. 8.Hyperlipidemia. 9.Hypothyroidism. 10.Osteoarthritis, multiple sites. 11.Anxiety. 12.Depression. 13.Overactive bladder. Discharge Medications And Instructions: Continue all prior home medication except following changes: 1.Stop carvedilol. 2.Start pantoprazole 40 mg take 1 tablet by mouth daily 30 minutes before breakfast. 3.Change Cortef 5 mg tablet and the patient to take it as below, take 8 tablets by mouth today gissel springer and as of November 19, 2024, she is to take 6 tablets by mouth 2 times a day; as of November 21, take 6 tablets by mouth 2 times a day; as of November 23, 2024, take 4 tablets by mouth 2 times a d ay and as of November 25, 2024, take 2 tablets by mouth 2 times a day and to continue it. The patient was instructed to take Cortef with food, so the patient to take after breakfast and after supper. 4.Follow up at my office next week. Hospital Course: An 88-year-old pleasant female patient, who was admitted to the hospital with longs tanding history of nausea, which apparently got worse for few days before she came into emergency nancy m where she was not able to eat anything. After the patient came into emergency room, she was sasha calvert and admitted to the hospital under my service. The patient has adrenal insufficiency and hypopit uitarism and she is on chronic steroid therapy using Cortef. When she came into hospital, her serum sodium level was low at 124 and she was started on IV hydrocortisone 100 mg every 8 hours, which was reduced to every 12 hours yesterday and she was also given IV fluid. Overall, her condition has impr obey. She was also started on IV pantoprazole. Her nausea problem has resolved now and she is able to eat well. CAT scan did not have any acute abnormality. We did obtain right upper quadrant abdomi nal ultrasound to rule out any underlying gallbladder disease and it came back unremarkable and we al so did HIDA scan which showed low ejection fraction of 17% keeping in mind, normal ejection fraction is more than 35%. I have discussed details of this test results with her. Considering her nausea pr oblem has resolved now, there is no need for any further intervention for this abnormal HIDA scan, bu t in the future, one has to consider laparoscopic cholecystectomy if she continues to have problem wi th nausea with relatively normal sodium level. At this time, obviously there is no need for surgical intervention. I have discussed all these details with her as well. Today, the patient is feeling m uch better. She is ambulating well in the room and the patient will be discharged to go home in stab le condition with above-mentioned medication and instruction and she will call office to schedule win ointment for next week. Today, as I was discussing with her regarding her Cortef dose to be increase d, she told me she was taking Cortef 5 mg tablet only 2 tablets daily in the morning where her instru ction on the prescription is 2 tablets 2 times a day and she did not realize this and as a result of this, she tells me that she has at least another 1 full bottle of order, which is a 90-day supply at home because she was not taking as prescribed and today she realized that and she will take it as per instruction. Total time spent today 45 minutes. PARAMJIT/MODL Voice ID: [id number] Report ID: [id number]
[2024-11-18] MEDS ORDERED: DESMOPRESSIN ACETATE NAS SCH (21:00)
[2024-11-18] MEDS ORDERED: TOLTERODINE LA 4 MG CAP PO SCH (21:00)
[2024-11-18] MEDS ORDERED: FAMOTIDINE 40 MG PO SCH (21:00)
[2024-11-18] MEDS ORDERED: ASPIRIN EC 81 MG TAB PO SCH (21:00)
--- NOTE | 2024-11-21 13:09 | EKG ---
Test Date: 2024-11-16 Test Time: 13:48:14 Delivery Supervisor: POOJA MEASUREMENT RESULTS: Intervals: Rate: 57 OK: 198 QRSD: 78 QT: 468 QTc: 455 Bowie: P: 69 OK: 198 QRS: -2 T: -70 INTERPRETIVE STATEMENTS: Sinus bradycardia with premature atrial complexes Nonspecific ST and T wave abnormality Abnormal ECG Compared to ECG 02/15/2019 09:08:20 Atrial premature complex(es) now present ST (T wave) deviation still present Electronically Signed On 11-21-24 13:02:30 COMBINATION MACHINE TOOL SETTER by Ubaldo Tomlinson
== END 2024-11-18 16:50 | disposition home or self-care (01) | DRG 641 ==
LOC: ER 11:41 → 4TH 16:50
PROVIDERS: ADMIT Internal Medicine; ATTEND Internal Medicine
DX: E87.1 Hypo-osmolality and hyponatremia (principal); E27.40 Unspecified adrenocortical insufficiency; E23.0 Hypopituitarism; K86.2 Cyst of pancreas; E87.6 Hypokalemia; E78.5 Hyperlipidemia, unspecified; I10 Essential (primary) hypertension; I70.0 Atherosclerosis of aorta; E03.9 Hypothyroidism, unspecified; F41.9 Anxiety disorder, unspecified; F32.A Depression, unspecified; N32.81 Overactive bladder; M19.09 Primary osteoarthritis, other specified site; K21.9 Gastro-esophageal reflux disease without esophagitis; K57.30 Diverticulosis of large intestine without perforation or abscess without bleeding; Z88.1 Allergy status to other antibiotic agents; Z11.52 Encounter for screening for COVID-19; Z90.710 Acquired absence of both cervix and uterus
CPT/HCPCS: 36415; 70450; 71045; 74177; 76705; 78227; 80048; 80076; 81001; 82533; 83690; 83735; 84484; 85025; 85610; 87804; 87811; 93005; 96361; 96374; 99285; A9537; J1650; J1720; J2470; J2805; J7030; J7040; Q9967

== ENCOUNTER 2025-01-19 13:54 | Inpatient (IN) | payer OTHER ==
--- OUTSIDE RECORDS SUMMARY | 2025-01-19 13:57 | XMS REPORT | Continuity of Care Document ---
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 Ordering Clinician Indication Dosage Frequency Signature (SIG) Comments Components Source atorvastati n atorvastati n Yes Aurelio Ball not defined [facility] D3 Adult D3 Adult Yes Aurelio Ball not defined [facility] Synthroid Synthroid Yes Aurelio Ball not defined [facility] Lisinopril Lisinopril Yes Aurelio Ball not defined [facility] Carvedilol Carvedilol Yes Aurelio Ball not defined [facility] Aspir-81 Aspir-81 Yes Aurelio Ball not defined [facility] B12 Folate B12 Folate Yes Aurelio Ball not defined [facility] Cortef Cortef Yes Aurelio Ball not defined [facility] Tolterodine Tartrate Tolterodine Tartrate Yes Aurelio Ball not defined [facility] Amlodipine Besylate Amlodipine Besylate Yes Aurelio Ball not defined [facility] Encounters Start Date/Time End Date/Time Encounter Type Admission Type Attending Clinicians Care Facility Care Department Encounter ID Source 2025-01-06 09:59:00 Outpatient [facility] [id number] [facility] 2025-01-03 09:31:00 Outpatient [facility] [id number] [facility] 2021-11-24 11:39:00 Outpatient [facility] [id number] [facility] 2023-08-29 00:00:00 2023-08-29 00:00:00 Outpatient [email or web address] [email or web address] [facility] [id number] [facility] 2020-06-17 10:30:00 2020-06-17 10:30:00 Outpatient [facility] [id number] [facility]
[2025-01-19] MEDS ORDERED: NA CHLORIDE 0.9% 500 ML ONE (14:27)
[2025-01-19] MEDS ORDERED: ONDANSETRON 4 MG/2 ML VIAL ONE (14:27)
[2025-01-19 14:42] LABS: Absolute Lymphocytes (CBC) 1.2 K/uL (0.7-4.9); Absolute Monocytes 0.5 K/uL (0.1-1.3); Absolute Neutrophil 2.9 K/uL (1.8-8.0); Basophils % 0.6 % (0-1.3); Eosinophils % 0.3 % (0-4.4); Hematocrit 39.9 % (36.0-45.0); Hemoglobin 13.6 g/dL (12.0-15.0); MCH 30.4 pg (27.0-35.0); MCHC 34.1 g/dL (32.0-36.0); MCV 89.2 fL (80-100); MPV 8.8 fL (7.6-11.3); Monocytes % 11.2 % (3.3-12.3); Neutrophils % 61.9 % (41.7-73.7); Nucleated Red Blood Cells % 0.1 % (0-0); Platelets 260 thou/uL (152-406); RBC Red Blood Cell Count 4.48 M/uL (3.86-4.86); Red Cell Distribution Width 13.6 % (12.1-15.2)
[2025-01-19 14:47] LABS: Influenza A Ag Positive; Influenza B Ag Negative; SARS-CoV-2 Antigen Rapid Res Negative (Negative)
[2025-01-19 14:50] LABS: PT Prothrombin Time 10.6 SECONDS (10-13.0); Protime INR 0.93
[2025-01-19 15:02] LABS: Albumin 3.3 g/dL (3.4-5.0); Albumin/Globulin Ratio 0.9 (1.1-1.8); Anion Gap 10.9 mEq/L (5.0-15.0); Bilirubin Total 0.9 mg/dL (0.2-1.0); Globulin 3.8 g/dL (2.3-3.5); Potassium 2.9 mEq/L (3.5-5.1); Protein, Total 7.1 g/dL (6.4-8.2)
[2025-01-19 15:09] LABS: Specific Gravity 1.011 (1.005-1.030); Sqamous Epithelial None Seen /HPF (None Seen); Urine Bacteria <20 /HPF (<20); Urine Bilirubin NEGATIVE (Negative); Urine Blood Trace (Negative); Urine Clarity Clear (Clear); Urine Color Light-Yellow (Yellow); Urine Culture Reflex Order NOT NEEDED; Urine Glucose NEGATIVE (Negative); Urine Ketones 1+ (Negative); Urine Microscopic Reflex YN ORDER UMIC; Urine Mucus Slight /HPF (None Seen); Urine Nitrite NEGATIVE (Negative); Urine Protein NEGATIVE (Negative); Urine RBC <5 /HPF (None Seen); Urine Urobilinogen Normal (Normal); Urine WBC <5 /HPF (<5)
--- NOTE | 2025-01-19 15:38 | ER ---
Nurse's Notes [facility] Name: Shannen Zaldivar Age: 89 yrs Sex: Female : 1935 Arrival Date: 01/19/2025 Time: 13:54 Bed 7 Private MD: Jordy Song C Diagnosis: Dehydration;Influenza due to identified novel influenza A virus Presentation: 01/19 14:06 Chief complaint: Patient states: "I tested positive for Flu A last Monday and Monday ss and I just feel so weak and dehydrated now.". Coronavirus screen: Client denies travel out of the [place] in the last 14 days. Ebola Screen: Patient denies exposure to infectious person. Patient denies travel to an Ebola-affected area in the 21 days before illness onset. Initial Sepsis Screen: Does the patient meet any 2 criteria? No. Patient's initial sepsis screen is negative. Does the patient have a suspected source of infection? No. Patient's initial sepsis screen is negative. Risk Assessment: Do you want to hurt yourself or someone else? Patient reports no desire to harm self or others. Onset of symptoms was January 12, 2025. 14:06 Method Of Arrival: Wheelchair ss 14:06 Acuity: DARNELL 3 ss Historical: - Allergies: 14:09 sulfamethoxazole-trimethoprim; ss 14:09 TRIMETHOPRIM; ss - PMHx: 14:09 Hyperlipidemia; Hypertension; Hypothyroidism; pituitary dysfunction; ss - PSHx: 14:09 brain surgery (ar); ss - Immunization history:: Adult Immunizations up to date. - Infectious Disease History:: Denies. - Social history:: Smoking status: Patient denies any tobacco usage or history of. Screenin:38 [facility] ED Fall Risk Assessment (Adult) History of falling in the last 3 months, le1 including since admission No falls in past 3 months (0 pts) Confusion or Disorientation No (0 pts) Intoxicated or Sedated No (0 pts) Impaired Gait No (0 pts) Mobility Assist Device Used Yes (1 pt) Altered Elimination No (0 pt) Score/Fall Risk Level 0 - 2 = Low Risk Oriented to surroundings, Maintained a safe environment, Educated pt \\T\\ family on fall prevention, incl call for assistance when getting out of bed, Assessed \\T\\ reinforced patient's understanding of fall precautions, Hourly rounding (assess needs \\T\\ fall precautionary measures) done, Used ambulatory aids as needed (educated on \\T\\ assisted with). Abuse screen: Denies threats or abuse. Denies injuries from another. Nutritional screening: No deficits noted. Tuberculosis screening: No symptoms or risk factors identified. Assessment: 14:37 General: Appears in no apparent distress. uncomfortable, Behavior is calm, cooperative, le1 appropriate for age. Pain: Complains of pain in generalized body aches Pain currently is 5 out of 10 on a pain scale. Quality of pain is described as aching. Neuro: No deficits noted. Cardiovascular: No deficits noted. Respiratory: Reports cough that is non-productive. GI: No deficits noted. : No deficits noted. EENT: No deficits noted. Derm: No deficits noted. Musculoskeletal: No deficits noted. 15:50 Reassessment: Patient is alert, oriented x 3, equal unlabored respirations, skin aa5 warm/dry/pink. 17:38 Reassessment: Assisted pt to bedside commode. Now back in bed on monitors. void x 1. ss Vital Signs: 14:06 BP 142 / 78; Pulse 70; Resp 18; Temp 98.1(O); Pulse Ox 97% on R/A; Weight 58.51 kg; ss Height 5 ft. 0 in. ; Pain 0/10; 15:14 BP 143 / 64; Pulse 64; Resp 16; Pulse Ox 98% ; le1 18:29 BP 134 / 74; Pulse 58; Resp 18; Pulse Ox 96% on R/A; le1 20:00 BP 132 / 72; Pulse 65; Resp 16; Temp 98.4; Pulse Ox 96% on R/A; dd2 14:06 Body Mass Index 25.19 (58.51 kg, 152.4 cm) ss 14:06 Pain Scale: Adult ss ED Course: 13:56 Patient arrived in ED. mr 13:57 Jordy Song MD is Private Physician. mr 13:57 Vicente Vanegas FNP-C [facility]. dr5 13:57 Ama Schumacher MD is Attending Physician. dr5 13:59 Renaldo George, RN is Primary Nurse. le1 14:09 Triage completed. ss 14:09 Arm band placed on right wrist. ss 14:20 Initial lab(s) drawn, by me, sent to lab. First set of blood cultures drawn by me. le1 Patient maintains SpO2 saturation greater than 95% on room air. 14:27 Second set of blood cultures drawn by me. le1 14:38 Inserted saline lock: 22 gauge in left antecubital area, using aseptic technique. le1 14:39 Client placed on continuous cardiac and pulse oximetry monitoring. NIBP monitoring le1 applied. doctor of chiropractic on. 14:40 Patient has correct armband on for positive identification. Bed in low position. Call le1 light in reach. Side rails up X2. Provided Education on: Informed to use call light if needed. 15:09 Chest Single View XRAY In Process Unspecified. EDMS 15:37 Jordy Song MD is Hospitalizing Provider. dr5 20:10 No provider procedures requiring assistance completed. dd2 20:10 Patient admitted, IV remains in place. dd2 Administered Medications: 14:32 Drug: NS 0.9% IV 500 ml IV at bolus once; to be given as a bolus over 30 minutes Route: aa5 IV; Rate: bolus; Site: left antecubital; 15:56 Follow up: Response: No adverse reaction; IV Status: Completed infusion; IV Intake: le1 1000ml 14:32 Drug: Ondansetron IVP 4 mg IVP once; over 2 minutes Route: IVP; Site: left antecubital; aa5 15:12 Follow up: Response: No adverse reaction; Nausea is decreased le1 15:50 Drug: NS 0.9% IV 1000 ml IV at 100 ml/hr continuous; to be given as a bolus over 60 aa5 minutes Route: IV; Rate: 100 ml/hr; Site: left antecubital; 19:57 Follow up: IV Status: Completed infusion dd2 15:51 Drug: Oseltamivir PO 75 mg PO once Route: PO; aa5 15:56 Follow up: Response: No adverse reaction le1 15:51 Drug: Solu-CORTEF IVP 100 mg IVP once Route: IVP; Site: left antecubital; aa5 15:56 Follow up: Response: No adverse reaction le1 16:13 Drug: Potassium Chloride PO 40 mEq PO once Route: PO; le1 16:13 Follow up: Response: No adverse reaction le1 Medication: 20:10 VIS not applicable for this client. dd2 Intake: 15:56 IV: 1000ml; Total: 1000ml. le1 Outcome: 15:37 Decision to Hospitalize by Provider. dr5 20:11 Admitted to ER Hold. Please see [facility] for further documentation. dd2 20:11 Condition: stable 20:11 Instructed on the need for admit, Demonstrated understanding of instructions, 20:53 Patient left the ED. dd2 Signatures: Dispatcher [employer] EDMS Brenda Felder, Reg Reg mr EmanuelFaviola, RN RN aa5 Jordyn Castro RN RN ss Renaldo George RN RN le1 RAMAN ANTHONY RN RN dd2 Vicente Vanegas, PROCESS COACH-C PROCESS COACH-Cdr5
--- NOTE | 2025-01-19 15:38 | EDPHYS ---
Physician Documentation [facility] Name: Shannen Zaldivar Age: 89 yrs Sex: Female : 1935 Arrival Date: 01/19/2025 Time: 13:54 Bed 7 Private MD: Jordy Song C ED Physician Ama Schumacher HPI: 01/19 16:21 This 89 yrs old Female presents to ER via Wheelchair with complaints of Flu dr5 Symptoms. 16:21 Onset: The symptoms/episode began/occurred 7 day(s) ago. Patient is an 89-year-old dr5 female with history of pituitary dysfunction, hypothyroidism, hypertension, hyperlipidemia coming in with flulike symptoms with dehydration and weakness. Patient reports that she has completed her Tamiflu and is not feeling any better. Patient also reports that she is not tolerating p.o. fluids well. Historical: - Allergies: 14:09 sulfamethoxazole-trimethoprim; ss 14:09 TRIMETHOPRIM; ss - PMHx: 14:09 Hyperlipidemia; Hypertension; Hypothyroidism; pituitary dysfunction; ss - PSHx: 14:09 brain surgery (ar); ss - Immunization history:: Adult Immunizations up to date. - Infectious Disease History:: Denies. - Social history:: Smoking status: Patient denies any tobacco usage or history of. ROS: 16:21 Constitutional: as per hpi dr5 Exam: 16:21 Constitutional: This is a well developed, well nourished patient who is awake, alert, dr5 and in no acute distress. Head/Face: Normocephalic, atraumatic. Eyes: Pupils equal round and reactive to light, extra-ocular motions intact. Lids and lashes normal. Conjunctiva and sclera are non-icteric and not injected. Cornea within normal limits. Periorbital areas with no swelling, redness, or edema. Neck: Trachea midline, no thyromegaly or masses palpated, and no cervical lymphadenopathy. Supple, full range of motion without nuchal rigidity, or vertebral point tenderness. No Meningismus. Chest/axilla: Normal chest wall appearance and motion. Nontender with no deformity. No lesions are appreciated. Cardiovascular: Regular rate and rhythm with a normal S1 and S2. Normal PMI, no JVD. No pulse deficits. Respiratory: Lungs have equal breath sounds bilaterally, clear to auscultation. No rales, rhonchi or wheezes noted. No increased work of breathing, no retractions or nasal flaring. Back: No spinal tenderness. No costovertebral tenderness. Full range of motion. Skin: Warm, dry with normal turgor. Normal color with no rashes, no lesions, and no evidence of cellulitis. Neuro: Awake and alert, GCS 15, oriented to person, place, time, and situation. Cranial nerves II-XII grossly intact. Motor strength 5/5 in all extremities. Sensory grossly intact. Cerebellar exam normal. Normal gait. Vital Signs: 14:06 BP 142 / 78; Pulse 70; Resp 18; Temp 98.1(O); Pulse Ox 97% on R/A; Weight 58.51 kg; ss Height 5 ft. 0 in. ; Pain 0/10; 15:14 BP 143 / 64; Pulse 64; Resp 16; Pulse Ox 98% ; le1 18:29 BP 134 / 74; Pulse 58; Resp 18; Pulse Ox 96% on R/A; le1 20:00 BP 132 / 72; Pulse 65; Resp 16; Temp 98.4; Pulse Ox 96% on R/A; dd2 14:06 Body Mass Index 25.19 (58.51 kg, 152.4 cm) ss 14:06 Pain Scale: Adult ss MDM: 13:58 Medical Screening Exam initiated dr5 16:21 Differential diagnosis: viral Infection, Dehydration, Influenza, Hypokalemia. Data dr5 reviewed: vital signs, nurses notes. Consideration of Admission/Observation Patient was admitted/placed on observation. Management of patient was discussed with the following: Primary Care Provider: Dr. Song. Care significantly affected by the following chronic conditions: Hypothyroidism, Pituitary Dysfunction, HTN, Hyperlipidemia. Care significantly affected by the following Social Determinants of Health: Poor access to healthcare and/or lack of insurance, Poor access to transportation, Problems related to employment. Counseling: I had a detailed discussion with the patient and/or guardian regarding the historical points, exam findings, and any diagnostic results supporting the discharge/admit diagnosis, the presence of at least one elevated blood pressure reading (>120/80) during this emergency department visit, the need for further work-up and treatment in the hospital. ED course: I discussed case with Dr. Song. He recommended hydrocortisone 100 mg IV now, NS at 100ml/hr, and Tamiflu twice daily with first dose now. Will admit patient to Dr. Song.. 01/19 14:13 Order name: COVID-19 Ag + Flu A+B Ag; Complete Time: 15:00 [facility] 01/19 14:13 Order name: CBC with Diff; Complete Time: 15:00 [facility] 01/19 14:13 Order name: CMP; Complete Time: 15:07 [facility] 01/19 14:13 Order name: Lactate w/ 2H reflex if indic.; Complete Time: 15: [facility] 01/19 14:13 Order name: Protime (+inr); Complete Time: 15:00 [facility] 01/19 14:13 Order name: Ptt, Activated; Complete Time: 15:00 [facility] 01/19 14:13 Order name: Urinalysis w/ reflexes; Complete Time: 15:19 [facility] 01/19 14:13 Order name: Blood Culture Adult (2) [facility] 01/19 15:48 Order name: Basic Metabolic Panel EDMS 01/19 15:48 Order name: Basic Metabolic Panel EDMS 01/19 15:48 Order name: CBC with Automated Diff EDMS 01/19 15:48 Order name: CBC with Automated Diff EDMS 01/19 14:13 Order name: Chest Single View XRAY; Complete Time: 15:57 [facility] 01/19 14:13 Order name: Accucheck; Complete Time: 14:23 [facility] 01/19 14:13 Order name: IV Saline Lock - Large Bore; Complete Time: 14:23 [facility] 01/19 14:13 Order name: Labs collected and sent; Complete Time: 14: [facility] 01/19 14:13 Order name: O2 Per Protocol; Complete Time: 14:15 [facility] 01/19 14:13 Order name: O2 Sat Monitoring; Complete Time: 14:15 [facility] 01/19 14:13 Order name: Vital Signs; Complete Time: 14:15 [facility] Administered Medications: 14:32 Drug: NS 0.9% IV 500 ml IV at bolus once; to be given as a bolus over 30 minutes Route: aa5 IV; Rate: bolus; Site: left antecubital; 15:56 Follow up: Response: No adverse reaction; IV Status: Completed infusion; IV Intake: le1 1000ml 14:32 Drug: Ondansetron IVP 4 mg IVP once; over 2 minutes Route: IVP; Site: left antecubital; aa5 15:12 Follow up: Response: No adverse reaction; Nausea is decreased le1 15:50 Drug: NS 0.9% IV 1000 ml IV at 100 ml/hr continuous; to be given as a bolus over 60 aa5 minutes Route: IV; Rate: 100 ml/hr; Site: left antecubital; 19:57 Follow up: IV Status: Completed infusion dd2 15:51 Drug: Oseltamivir PO 75 mg PO once Route: PO; aa5 15:56 Follow up: Response: No adverse reaction le1 15:51 Drug: Solu-CORTEF IVP 100 mg IVP once Route: IVP; Site: left antecubital; aa5 15:56 Follow up: Response: No adverse reaction le1 16:13 Drug: Potassium Chloride PO 40 mEq PO once Route: PO; le1 16:13 Follow up: Response: No adverse reaction le1 Disposition Summary: 01/19/25 15:37 Hospitalization Ordered Notes: Hospitalization Status: Inpatient Admission dr5 Provider: Jordy Song Condition: Fair dr5 Problem: new dr5 Symptoms: are unchanged dr5 Bed/Room Type: Standard dr5 Location: Telemetry/MedSurg (Inpatient)(01/19/25 19:47) vc1 Room Assignment: 225(01/19/25 19:47) vc1 Diagnosis - Dehydration dr5 - Influenza due to identified novel influenza A virus dr5 Forms: - Medication Reconciliation Form dr5 - SBAR form dr5 - Leadership Thank You Letter dr5 Signatures: Dispatcher [employer] EDFaviola Olivarez RN RN aa5 Jordyn Castro RN RN ss Shagufta Rodriguez RN RN vc1 Renaldo George RN RN evette1 Vicente Vanegas, WALL TAPER HELPER-C WALL TAPER HELPER-Cdr5 RAMAN ANTHONY RN dd2 Corrections: (The following items were deleted from the chart) 18:36 15:37 Telemetry/MedSurg (observation) dr5 ss 18:36 15:37 dr5 ss 19:47 18:36 [facility] ER HOLD ss vc1 19:47 18:36 ERHOLD- ss vc1
[2025-01-19] MEDS ORDERED: ACETAMINOPHEN 500 MG TAB PO PRN (15:39)
[2025-01-19] MEDS ORDERED: HYDROCORTISONE SUC 100 MG INJ ONE (15:40)
[2025-01-19] MEDS ORDERED: NA CHLORIDE 0.9% 1,000 ML ONE (15:40)
[2025-01-19] MEDS ORDERED: OSELTAMIVIR 75 MG CAP PO ONE (15:40)
--- NOTE | 2025-01-19 15:57 | RAD REPORT ---
EXAMINATION: ONE VIEW CHEST XR CLINICAL INDICATION: Female, 89 years old.,Congestion;Fever TECHNIQUE: Frontal chest projection is submitted. Examination is limited by patient positioning and t echnique. COMPARISON: 11/16/2024 FINDINGS: The lungs are well inflated and clear. No pneumothorax or sizable effusion. The heart is normal in s ize. Mediastinal contours are unremarkable. IMPRESSION: No acute intrathoracic abnormalities.
[2025-01-19] MEDS: NA CHLORIDE 0.9% 1,000 ML IV SCH (16:00)
[2025-01-19] MEDS ORDERED: POTASSIUM CL SA 10 MEQ TAB PO ONE (16:08)
[2025-01-19] MEDS: OSELTAMIVIR 75 MG CAP PO SCH (21:00)
[2025-01-19 21:15] VITALS: O2SAT 96
[2025-01-19 21:48] VITALS: BMI 25.2
[2025-01-19] MEDS: HYDROCORTISONE SUC 100 MG INJ IV SCH (22:24)
[2025-01-20 05:51] LABS: Absolute Lymphocytes (CBC) 0.9 K/uL (0.7-4.9); Absolute Monocytes 0.1 K/uL (0.1-1.3); Absolute Neutrophil 3.1 K/uL (1.8-8.0); Basophils % 0.5 % (0-1.3); Hematocrit 37.5 % (36.0-45.0); Lymphocytes % 21.8 % (15.3-44.8); MCH 30.9 pg (27.0-35.0); MCHC 34.8 g/dL (32.0-36.0); MCV 88.9 fL (80-100); MPV 8.9 fL (7.6-11.3); Monocytes % 2.1 % (3.3-12.3); Neutrophils % 75.6 % (41.7-73.7); Nucleated Red Blood Cells % 0.2 % (0-0); Platelets 230 thou/uL (152-406); RBC Red Blood Cell Count 4.22 M/uL (3.86-4.86); Red Cell Distribution Width 13.3 % (12.1-15.2)
[2025-01-20 06:03] LABS: Anion Gap 11.2 mEq/L (5.0-15.0); Potassium 3.2 mEq/L (3.5-5.1)
[2025-01-20] MEDS ORDERED: GUAIFENESIN/DM 5 ML UCUP PO PRN (07:01)
[2025-01-20] MEDS: NA CHLORIDE 0.9% 1,000 ML IV SCH (09:26)
[2025-01-20] MEDS: TOLTERODINE LA 4 MG CAP PO SCH (09:27)
[2025-01-20] MEDS: ENOXAPARIN 30 MG/0.3 ML SQ SCH (09:28)
[2025-01-20] MEDS: HYDROCORTISONE SUC 100 MG INJ IV SCH (09:28)
[2025-01-20] MEDS: AMLODIPINE 5 MG TAB PO SCH (09:28)
[2025-01-20] MEDS: LEVOTHYROXINE SOD 0.05 MG TABLET PO SCH (09:29)
[2025-01-20] MEDS: lisinopriL 20 MG TAB PO SCH (09:29)
--- NOTE | 2025-01-21 01:14 | HP ---
Date of Admission: 01/20/2025 Chief Complaint: Nausea, loss of appetite, feeling weak. History Of Present Illness: This is an 89-year-old female patient, who recently had acute bronchitis and influenza A and she was given antibiotic azithromycin which she has completed and was also given Tamiflu. Yesterday, the patient contacted me and informed me that she is taking her medication as p rescribed, but she is having really bad nausea and has very poor appetite, has not had much to eat or drink in last few days, and she feels very weak and feels like she is dehydrated and not doing well, so I did talk to her yesterday and suggested for her to come to emergency room. After she was evalu ated in ER, she was admitted to the hospital. She denies any abdominal pain or diarrhea. Physical Examination: Vital Signs: Upon admission, height 5 feet, weight 128 pounds, temperature this morning was 98.1, pu lse 54, respiratory rate 16, blood pressure 139/74, oxygen saturation 98% on room air. General: Awake, alert, oriented, not in distress. HEENT: Head atraumatic, normocephalic. Conjunctivae nonerythematous. Sclerae white. Mouth, no thr ush or edema noted. Ears/Nose, no mass, lesion, discharge noted. Neck: Supple. No JVD, lymph nodes, bruit, thyromegaly noted. Lungs: Bilateral good equal air entry. Clear to auscultation. No rhonchi. No rales. Heart: Normal heart sounds, no murmur or gallop. Abdomen: Soft, bowel sounds normal. No guarding, rigidity, tenderness, mass, hepatosplenomegaly, dis tention, or bruit noted. Extremities: No leg edema. No calf tenderness. Skin: No rash, ulcer, cellulitis. Lymphatics: No lymph node enlargement in neck, supraclavicular, infraclavicular region. Neuro: No focal neurological deficit. Chest: Unremarkable. External Genitalia: Deferred. Rectal: Deferred. Laboratory Data: Yesterday, WBC 4.7, hemoglobin 13.6, and platelets 260. This morning, WBC 4.10, he moglobin 13, and platelets 230. For chemistry yesterday, sodium 123, potassium 2.9, chloride 88, bic arb 27, BUN 17, creatinine 0.82, glucose 97, lactic acid 1. Liver function tests unremarkable. This morning, sodium 128, potassium 3.2, chloride 96, bicarb 24, BUN 12, creatinine 0.51, glucose 107. U rinalysis was normal. COVID-19 test and influenza B test negative, but influenza A test positive. C hest x-ray, no acute cardiopulmonary changes. Impression: 1. Volume depletion. 2. Hyponatremia. 3. Adrenal insufficiency. 4. Hypopituitarism. 5. Gastroesophageal reflux disease. 6. Hypertension. 7. Bradycardia. 8. Hyperlipidemia. 9. Hypothyroidism. 10. Osteoarthritis, multiple sites. 11. Anxiety. 12. Depression. 13. Overactive bladder. Plan: We will admit the patient to the hospital for further evaluation and management of this proble m. The patient is appropriate for inpatient and is expected to spend 2 midnights in hospital. After she arrived in the emergency room, she was started on IV fluid and IV hydrocortisone 100 mg every 6 hours was started. Initially, the patient was refusing to take IV steroid and after emergency room neetu frances contacted me, importance of taking IV steroid was explained to the provider and once provider communicated with the patient, she was agreeable to start that. This morning, she is feeling somewh at better compared to yesterday. We will continue IV fluid, but reduce rate to 50 cc/hour and reduce hydrocortisone 100 mg from every 6 hours to every 8 hours dose and tomorrow we will reduce the dose further. Physical Therapy was consulted to help ambulate the patient. Regular diet was ordered. Fo r blood pressure, we will continue antihypertensive medication. Monitor blood pressure. If necessar y, adjust medication. For hypothyroidism, continue her levothyroxine and no need for further interve ntion. Hypokalemia will be corrected per order for hyponatremia which should improve with IV fluid a nd with IV steroid use. I did communicate with her regarding advance directive and in the event of c ardiopulmonary arrest, the patient does not want any heroic measures like CPR, defibrillation, or kel tilator support, and we will write DNR order in the chart. Total time spent 85 minutes including communication with emergency room provider, review of emergency room visit record, performing today's evaluation and management as well as review of last hospital a dmission record from 11/16/2024. DVT prophylaxis will be given using Lovenox. I will see her tomorr ow for followup. PARAMJIT/ALEXANDRA Voice ID: [id number]
[2025-01-21] MEDS: PANTOPRAZOLE 40MG TABLET PO SCH (06:13)
[2025-01-21] MEDS: ENOXAPARIN 30 MG/0.3 ML SQ SCH (08:15)
[2025-01-21 12:12] VITALS: BP 139/65; TEMP 98.7
--- NOTE | 2025-01-21 23:04 | DS ---
Date of Discharge: 01/21/2025 Disposition: Discharged to go home. Physical Examination: HEENT: Unremarkable. Lungs: Clear to auscultation. Heart: Sounds normal. Abdomen: Soft. Bowel sounds normal. No guarding, rigidity, tenderness, distention. Extremities: No leg edema. Laboratory Data: Upon admission, WBC 4.7, hemoglobin 13.6, platelets 260. Yesterday, WBC 4.1, hemog lobin 13, platelets 230. For chemistry upon admission, sodium 123, potassium 2.9, chloride 88, bicar b 27, BUN 17, creatinine 0.82, glucose 97. Liver function tests unremarkable. Lactic acid 1. Yeste rday, sodium 128, potassium 3.2, chloride 96, bicarb 24, BUN 12, creatinine 0.51, glucose 107. Hospital Course: This is an 89-year-old pleasant female, who was admitted to hospital with nausea, p oor appetite, and feeling very weak. Please see dictated H and P for more information. After the pa nicholas was evaluated in emergency room, she was admitted to hospital with volume depletion, hyponatrem ia, and adrenal insufficiency. The patient has primary adrenal insufficiency and she is on steroid m edication at home which she takes it regularly. Recently, she had bronchitis and influenza and her c ondition deteriorated to the extent that she ended up in hospital over the weekend after I talked to her. Her condition overall has improved with IV fluid and IV steroid. Nausea and generalized weakne ss have improved significantly. She started ambulating very well yesterday, now has good appetite an d this morning, she was feeling lot better and felt comfortable going home. Medically, she is stable for discharge and I have instructed her to come see me next week on Monday and we will repeat blood work that particular day. I have given her instruction regarding higher dose of Cortef to be taken a t home as per discharge instruction and she verbalized understanding. Discharge Diagnoses: 1. Volume depletion. 2. Hyponatremia. 3. Adrenal insufficiency. 4. . 5. . 6. . Discharge Medications And Instructions: 1. Continue all prior home medications except following change: Cortef 5 mg, the patient to take 4 t ablets by mouth 2 times a day for 2 days, then 6 tablets by mouth 2 times a day for 2 days, then 4 ta blets by mouth 2 times a day to continue. The patient was taking 2 tablets by mouth 2 times a day pr ior to this admission. 2. Follow up at my office next week on Monday, which is 01/27/2025. Total time spent today 40 minutes. PARAMJIT/MODL Voice ID: [id number] Report ID: [id number]
== END 2025-01-21 12:30 | disposition home or self-care (01) | DRG 641 ==
LOC: ER 13:54 → ERHOLD 15:39 → 2ND 20:12
PROVIDERS: ADMIT Internal Medicine; ATTEND Internal Medicine
DX: E86.9 Volume depletion, unspecified (principal); E23.0 Hypopituitarism; E27.40 Unspecified adrenocortical insufficiency; E03.9 Hypothyroidism, unspecified; I10 Essential (primary) hypertension; E87.1 Hypo-osmolality and hyponatremia; J10.1 Influenza due to other identified influenza virus with other respiratory manifestations; E78.5 Hyperlipidemia, unspecified; K21.9 Gastro-esophageal reflux disease without esophagitis; R00.1 Bradycardia, unspecified; M15.9 Polyosteoarthritis, unspecified; F41.8 Other specified anxiety disorders; N32.81 Overactive bladder; Z11.52 Encounter for screening for COVID-19
CPT/HCPCS: 36415; 71045; 80048; 80053; 81001; 83605; 85025; 85610; 85730; 87040; 87428; 96361; 96374; 96375; 97116; 97161; 97530; 99285; J1650; J1720; J2405; J7030; J7040

== ENCOUNTER 2025-01-24 11:00 | Observation (INO) | payer OTHER ==
--- OUTSIDE RECORDS SUMMARY | 2025-01-24 11:03 | XMS REPORT | Continuity of Care Document ---
Author Name Unknown Address [address] [address] [address] [place], [place] [id number] [place], [place] [address] [address] [address] [address] [place] [address] Care Team Providers Care Manager Mental Health Name Role Phone [email or web address] Attending Clinician Unavaila ble [email or web address] Admitting Clinician Unavaila ble Problems Condition Name Condition Details Condition Category Status Onset Date Resolution Date Last Treatment Date Treating Clinician Comments Source Pain in joint of left shoulder Pain in joint of left shoulder Diagnosis Active [facility] 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 Ordering Clinician Indication Dosage Frequency Signature (SIG) Comments Components Source D3 Adult D3 Adult Yes Aurelio Ball not defined [facility] Synthroid Synthroid Yes Aurelio Ball not defined [facility] Lisinopril Lisinopril Yes Aurelio Ball not defined [facility] Carvedilol Carvedilol Yes Aurelio Ball not defined [facility] Aspir-81 Aspir-81 Yes Aurelio Ball not defined [facility] B12 Folate B12 Folate Yes Aurelio Ball not defined [facility] Cortef Cortef Yes Aurelio Ball not defined [facility] Tolterodine Tartrate Tolterodine Tartrate Yes Aurelio Ball not defined [facility] Amlodipine Besylate Amlodipine Besylate Yes Aurelio Ball not defined [facility] atorvastati n atorvastati n Yes Aurelio Ball not defined [facility] Encounters Start Date/Time End Date/Time Encounter Type Admission Type Attending Clinicians Care Facility Care Department Encounter ID Source 2025-01-06 09:59:00 Outpatient [facility] [id number] [facility] 2025-01-03 09:31:00 Outpatient [facility] [id number] [facility] 2021-11-24 11:39:00 Outpatient [facility] [id number] [facility] 2023-08-29 00:00:00 2023-08-29 00:00:00 Outpatient [email or web address] [email or web address]_[email or web address] [facility] [id number] [facility] 2020-06-17 10:30:00 2020-06-17 10:30:00 Outpatient [facility] [id number] [facility]
[2025-01-24] MEDS ORDERED: FLEET ENEMA ADULT PR ONE (13:13)
[2025-01-24 13:52] LABS: Absolute Lymphocytes (CBC) 0.8 K/uL (0.7-4.9); Absolute Monocytes 0.4 K/uL (0.1-1.3); Absolute Neutrophil 8.4 K/uL (1.8-8.0); Eosinophils % 0.1 % (0-4.4); Hematocrit 35.5 % (36.0-45.0); Hemoglobin 12.4 g/dL (12.0-15.0); Lymphocytes % 8.2 % (15.3-44.8); MCH 31.2 pg (27.0-35.0); MCV 89.3 fL (80-100); MPV 8.7 fL (7.6-11.3); Monocytes % 4.1 % (3.3-12.3); Neutrophils % 87.6 % (41.7-73.7); Nucleated Red Blood Cells % 0.1 % (0-0); Platelets 274 thou/uL (152-406); RBC Red Blood Cell Count 3.97 M/uL (3.86-4.86); Red Cell Distribution Width 13.9 % (12.1-15.2)
--- NOTE | 2025-01-24 13:56 | RAD REPORT ---
EXAMINATION: Abdomen Pelvis W Contrast CLINICAL INDICATION: Female, 89 years old.Abd pain;Constipation TECHNIQUE: CT abdomen and pelvis was performed, after the administration of IV contrast, as per [facility] protocol. Axial, sagittal and coronal reconstructions were obtained. One or more of the following dose reduction techniques were used: Automated exposure control, adjustment of the mA and/o r kV according to patient size, and/or iterative reconstruction. Unless otherwise specified, incidental findings do not require dedicated imaging follow-up. [id number]. COMPARISON: 11/16/2024 FINDINGS: LOWER CHEST: No acute process identified.No significant pericardial effusion. Mild coronary artery ca lcifications. Breast prostheses. UPPER GI: No significant abnormality. LIVER: No significant focal abnormality. GALLBLADDER/BILE DUCTS: No biliary ductal dilatation.? PANCREAS: Atrophy but no acute findings. SPLEEN: Unremarkable. ADRENALS: No adrenal masses. KIDNEYS AND URETERS: No hydronephrosis.Low density and/or too small to characterize renal lesions whi ch are statistically benign.6 mm stone at the lower pole left kidney. ABDOMINAL AORTA AND OTHER VESSELS: Moderate atherosclerotic changes without aortic aneurysm. PERITONEUM: No abnormal free fluid. No free air. LYMPH NODES: No pathologic lymphadenopathy. ABDOMINAL WALL: Unremarkable SMALL BOWEL/COLON: Small bowel has normal course and caliber. No colonic wall thickening or pericolon ic inflammatory changes.Normal appendix. Mild diverticulosis without diverticulitis. Moderate formed stool burden. URINARY BLADDER: Underdistended but grossly unremarkable. REPRODUCTIVE ORGANS: Uterus surgically absent. No adnexal abnormality. MUSCULOSKELETAL: Multilevel degenerative changes in the spine. No acute fracture. ADDITIONAL FINDINGS: None. IMPRESSION: No acute findings within the abdomen or pelvis. No bowel obstruction. Ancillary findings as noted above.
[2025-01-24 14:13] LABS: Albumin 2.9 g/dL (3.4-5.0); Anion Gap 8.2 mEq/L (5.0-15.0); Bilirubin Total 0.7 mg/dL (0.2-1.0); Protein, Total 5.9 g/dL (6.4-8.2)
[2025-01-24 14:18] LABS: Potassium 2.2 mEq/L (3.5-5.1)
--- NOTE | 2025-01-24 14:42 | ER ---
Nurse's Notes [facility] Name: Shannen Zaldivar Age: 89 yrs Sex: Female : 1935 Arrival Date: 01/24/2025 Time: 11:00 Bed 6 Private MD: Diagnosis: Constipation, hypokalemia Presentation: 01/24 11:51 Chief complaint: Patient states: Sent by Dr Song for constipation, last BM 01/15/25. jl7 Coronavirus screen: At this time, the client does not indicate any symptoms associated with coronavirus-19. Ebola Screen: No symptoms or risks identified at this time. Initial Sepsis Screen: Does the patient meet any 2 criteria? No. Patient's initial sepsis screen is negative. Does the patient have a suspected source of infection? No. Patient's initial sepsis screen is negative. Risk Assessment: Do you want to hurt yourself or someone else? Patient reports no desire to harm self or others. Onset of symptoms was January 15, 2025. 11:51 Method Of Arrival: Ambulatory [facility] 11:51 Acuity: DARNELL 3 jl7 Triage Assessment: 11:52 General: Appears in no apparent distress. uncomfortable, Behavior is cooperative, jl7 restless. Pain: Denies pain. GI: Reports constipation, nausea. Historical: - Allergies: 11:52 sulfamethoxazole-trimethoprim; jl7 11:52 TRIMETHOPRIM; jl7 - PMHx: 11:52 Hyperlipidemia; Hypertension; Hypothyroidism; pituitary dysfunction; jl7 - PSHx: 11:52 brain surgery; hypophysectomy (brain surgery); jl7 - Immunization history:: Adult Immunizations unknown. - Infectious Disease History:: Denies. - Social history:: Smoking status: Patient denies any tobacco usage or history of. Screenin:00 [facility] ED Fall Risk Assessment (Adult) History of falling in the last 3 months, hb including since admission Yes- single mechanical fall (1 pt) Confusion or Disorientation No (0 pts) Intoxicated or Sedated No (0 pts) Impaired Gait Yes (1 pt) Mobility Assist Device Used Yes (1 pt) Altered Elimination No (0 pt) Score/Fall Risk Level 3 or more points = High Risk Oriented to surroundings, Maintained a safe environment, Educated pt \T\ family on fall prevention, incl call for assistance when getting out of bed, Hourly rounding (assess needs \T\ fall precautionary measures) done, Used ambulatory aids as needed (educated on \T\ assisted with). Abuse screen: Denies threats or abuse. Denies injuries from another. Nutritional screening: No deficits noted. Tuberculosis screening: No symptoms or risk factors identified. Assessment: 12:23 General: Appears in no apparent distress. Behavior is calm, cooperative. Pain: Pain hb currently is 1 out of 10 on a pain scale. Neuro: Level of Consciousness is awake, alert, obeys commands, Oriented to person, place, time, situation. Cardiovascular: Patient's skin is warm and dry. Respiratory: Respiratory effort is even, unlabored, Respiratory pattern is regular, symmetrical. GI: Reports constipation, nausea. : No signs and/or symptoms were reported regarding the genitourinary system. EENT: No signs and/or symptoms were reported regarding the EENT system. Derm: Skin is pink, warm \T\ dry. Musculoskeletal: No signs and/or symptoms reported regarding the musculoskeletal system. 14:41 Reassessment: Assisted to BSC with daughter. hb 15:05 Reassessment: Assisted to BSC with daughter. hb 15:30 Reassessment: Patient appears in no apparent distress at this time. Patient and/or hb family updated on plan of care and expected duration. Pain level reassessed. 15:44 Reassessment: Assisted to BSC with daughter. hb 16:30 Reassessment: Patient appears in no apparent distress at this time. Patient and/or hb family updated on plan of care and expected duration. Pain level reassessed. Patient is alert, oriented x 3, equal unlabored respirations, skin warm/dry/pink. 16:35 Reassessment: Assisted to BSC with daughter. hb 18:00 Reassessment: Patient appears in no apparent distress at this time. Patient and/or hb family updated on plan of care and expected duration. Pain level reassessed. Patient is alert, oriented x 3, equal unlabored respirations, skin warm/dry/pink. 18:32 Reassessment: Daughters Isabel [phone], Donna [phone]. hb Vital Signs: 11:51 BP 155 / 70; Pulse 80; Resp 17; Temp 98.7; Pulse Ox 98% ; Weight 61.23 kg; Height 5 ft. jl7 0 in. ; Pain 0/10; 13:30 BP 148 / 67; Pulse 47; Resp 15; Pulse Ox 98% on R/A; hb 15:00 BP 155 / 69; Pulse 49; Resp 17; Pulse Ox 98% on R/A; hb 16:30 BP 142 / 68; Pulse 55; Resp 15; Pulse Ox 98% on R/A; hb 18:15 BP 147 / 77; Pulse 58; Resp 14; Pulse Ox 98% on R/A; hb 11:51 Body Mass Index 26.37 (61.23 kg, 152.4 cm) jl7 11:51 Pain Scale: Adult 7 ED Course: 11:03 Patient arrived in ED. al6 11:06 Ama Schumacher MD is Attending Physician. sp3 11:52 Triage completed. jl7 11:52 Arm band placed on right wrist. jl7 13:00 Patient has correct armband on for positive identification. Provided Education on: use hb of call light, medications. 13:15 CBC with Diff Sent. ap3 13:15 CMP Sent. ap3 13:15 Lipase Sent. ap3 13:39 CT Abd/Pelvis - IV Contrast Only In Process Unspecified. EDMS 14:41 Duncan Song MD is Hospitalizing Provider. sp3 16:42 Jocelyne Real, RN is Primary Nurse. hb Administered Medications: 14:07 Drug: Fleet Enema GA 133 ml GA once Route: GA; hb 15:38 Drug: Potassium Chloride IV 20 mEq IV at calculated rate once; administer over 1-2 jb4 hours Route: IV; Rate: calculated rate; Site: right antecubital; 15:39 Drug: Lactulose PO 30 grams 45 ml PO once Volume: 45 ml; Route: PO; jb4 15:39 Drug: Potassium PO Effervescent Tablet 50 mEq PO once; dissolve in 4 ounces of water or jb4 juice Route: PO; Medication: 16:39 VIS not applicable for this client. hb Outcome: 14:41 Decision to Hospitalize by Provider. sp3 18:34 Patient left the ED. hb Signatures: Dispatcher [employer] EDMS Jocelyne Real RN RN hb Josue Zapata RN RN jb4 Darleen Fofana RN RN jl7 Akosua Sheppard RN RN ap3 Ama Schumacher MD MD sp3 Kourtney Del Toro al6
--- NOTE | 2025-01-24 14:42 | EDPHYS ---
Physician Documentation [facility] Name: Shannen Zaldivar Age: 89 yrs Sex: Female : 1935 Arrival Date: 01/24/2025 Time: 11:00 Bed 6 Private MD: ED Physician Ama Schumacher HPI: 01/24 12:56 This 89 yrs old Female presents to ER via Ambulatory with complaints of Constipation. sp3 12:56 89-year-old female with history of hypertension, hyperlipidemia, presents to the ED sp3 sent by PCP Dr. Song for constipation and possible impaction. Patient states her last bowel movement was over 1 week ago and she now feels distended. Denies any fever, headache, chest pain, shortness of breath, back pain, bleeding, rash, syncope, or any other signs or symptoms on ROS at this time.. Historical: - Allergies: 11:52 sulfamethoxazole-trimethoprim; jl7 11:52 TRIMETHOPRIM; jl7 - PMHx: 11:52 Hyperlipidemia; Hypertension; Hypothyroidism; pituitary dysfunction; jl7 - PSHx: 11:52 brain surgery; hypophysectomy (brain surgery); jl7 - Immunization history:: Adult Immunizations unknown. - Infectious Disease History:: Denies. - Social history:: Smoking status: Patient denies any tobacco usage or history of. ROS: 12:56 Constitutional: Negative for fever, chills, and weight loss, Eyes: Negative for injury, sp3 pain, redness, and discharge, Neck: Negative for injury, pain, and swelling, Cardiovascular: Negative for chest pain, palpitations, and edema, Respiratory: Negative for shortness of breath, cough, wheezing, and pleuritic chest pain, Back: Negative for injury and pain, MS/Extremity: Negative for injury and deformity, Skin: Negative for injury, rash, and discoloration, Neuro: Negative for headache, weakness, numbness, tingling, and seizure, Psych: Negative for depression, anxiety, suicide ideation, homicidal ideation, and hallucinations, Allergy/Immunology: Negative for hives, rash, and allergies, Endocrine: Negative for neck swelling, polydipsia, polyuria, polyphagia, and marked weight changes, Hematologic/Lymphatic: Negative for swollen nodes, abnormal bleeding, and unusual bruising, 12:56 All other systems are negative, Exam: 12:56 Constitutional: This is a well developed, well nourished patient who is awake, alert, sp3 and in no acute distress. Head/Face: Normocephalic, atraumatic. Eyes: Pupils equal round and reactive to light, extra-ocular motions intact. Lids and lashes normal. Conjunctiva and sclera are non-icteric and not injected. Cornea within normal limits. Periorbital areas with no swelling, redness, or edema. Neck: Trachea midline, no thyromegaly or masses palpated, and no cervical lymphadenopathy. Supple, full range of motion without nuchal rigidity, or vertebral point tenderness. No Meningismus. Chest/axilla: Normal chest wall appearance and motion. Nontender with no deformity. No lesions are appreciated. Cardiovascular: Regular rate and rhythm with a normal S1 and S2. No gallops, murmurs, or rubs. Normal PMI, no JVD. No pulse deficits. Respiratory: Lungs have equal breath sounds bilaterally, clear to auscultation and percussion. No rales, rhonchi or wheezes noted. No increased work of breathing, no retractions or nasal flaring. Back: No spinal tenderness. No costovertebral tenderness. Full range of motion. Skin: Warm, dry with normal turgor. Normal color with no rashes, no lesions, and no evidence of cellulitis. MS/ Extremity: Pulses equal, no cyanosis. Neurovascular intact. Full, normal range of motion. Neuro: Awake and alert, GCS 15, oriented to person, place, time, and situation. Cranial nerves II-XII grossly intact. Motor strength 5/5 in all extremities. Sensory grossly intact. Cerebellar exam normal. Normal gait. Psych: Awake, alert, with orientation to person, place and time. Behavior, mood, and affect are within normal limits. 12:56 Abdomen/GI: Distended abdomen tender to palpation without peritoneal signs, rebound or guarding., Vital Signs: 11:51 BP 155 / 70; Pulse 80; Resp 17; Temp 98.7; Pulse Ox 98% ; Weight 61.23 kg; Height 5 ft. jl7 0 in. ; Pain 0/10; 13:30 BP 148 / 67; Pulse 47; Resp 15; Pulse Ox 98% on R/A; hb 15:00 BP 155 / 69; Pulse 49; Resp 17; Pulse Ox 98% on R/A; hb 16:30 BP 142 / 68; Pulse 55; Resp 15; Pulse Ox 98% on R/A; hb 18:15 BP 147 / 77; Pulse 58; Resp 14; Pulse Ox 98% on R/A; hb 11:51 Body Mass Index 26.37 (61.23 kg, 152.4 cm) jl7 11:51 Pain Scale: Adult jl7 MDM: 12:07 Medical Screening Exam initiated sp3 12:57 Data reviewed: vital signs, nurses notes, lab test result(s), radiologic studies. ED sp3 course: 89-year-old female with abdominal pain and constipation. Differential diagnosis includes constipation, impaction, small bowel obstruction, ileus, among others. Will obtain CT scan of the abdomen pelvis and routine labs. Disposition probable admission.. 14:42 ED course: Moderate stool burden noted without rectal impaction. After fleets enema, sp3 patient is not having small amount of bowel movement. I discussed case with PCP Dr. Song who was agreed to place her in observation. We will also administer lactulose for constipation as well as replenish potassium which is low at 2.2.. 01/24 12:09 Order name: CBC with Diff; Complete Time: 14:01 sp3 01/24 12:09 Order name: CMP; Complete Time: 14:37 sp3 01/24 12:09 Order name: Lipase; Complete Time: 14:37 sp3 01/24 12:09 Order name: Urinalysis w/ reflexes sp3 01/24 14:57 Order name: Basic Metabolic Panel EDHI 01/24 14:57 Order name: Basic Metabolic Panel EDHI 01/24 14:57 Order name: CBC with Automated Diff EDMS 01/24 14:57 Order name: CBC with Automated Diff EDMS 01/24 12:09 Order name: CT Abd/Pelvis - IV Contrast Only; Complete Time: 14:01 sp3 01/24 14:57 Order name: Abdomen 1 View (KUB) EDHI 01/24 12:09 Order name: IV Saline Lock; Complete Time: 13:14 sp3 01/24 12:09 Order name: Labs collected and sent; Complete Time: 13:15 sp3 01/24 12:10 Order name: NPO; Complete Time: 13:11 sp3 Administered Medications: 14:07 Drug: Fleet Enema NY 133 ml NY once Route: NY; hb 15:38 Drug: Potassium Chloride IV 20 mEq IV at calculated rate once; administer over 1-2 jb4 hours Route: IV; Rate: calculated rate; Site: right antecubital; 15:39 Drug: Lactulose PO 30 grams 45 ml PO once Volume: 45 ml; Route: PO; jb4 15:39 Drug: Potassium PO Effervescent Tablet 50 mEq PO once; dissolve in 4 ounces of water or jb4 juice Route: PO; Disposition Summary: 01/24/25 14:41 Hospitalization Ordered Notes: Hospitalization Status: Observation sp3 Provider: Duncan Song sp3 Location: Telemetry/[facility] (observation) sp3 Condition: Stable sp3 Problem: an acute exacerbation sp3 Symptoms: have worsened sp3 Bed/Room Type: Standard sp3 Room Assignment: 224(01/24/25 17:45) ty Diagnosis - Constipation, hypokalemia sp3 Forms: - Medication Reconciliation Form sp3 - SBAR form sp3 - Leadership Thank You Letter sp3 Critical care time excluding procedures: 14:42 Critical care time: Bedside Care: 10 minutes, Consultation: 10 minutes, Family sp3 Intervention: 10 minutes. Total time: 30 minutes Signatures: Dispatcher [employer] EDMS Jocelyne Real RN RN Josue Pereira RN RN [email or web address] Darleen Fofana RN RN jl7 Ama Schumacher MD MD sp3 Niko Stoner ty Corrections: (The following items were deleted from the chart) 12:10 12:10 CBC+H.LAB.BRZ ordered. EDMS EDMS 12:10 12:10 COMPREHENSIVE METABOLIC PANEL+C.LAB.BRZ ordered. EDMS EDMS 12:10 12:10 LIPASE+C.LAB.BRZ ordered. EDMS EDMS 12:10 12:10 Urinalysis+U.LAB.BRZ ordered. EDMS EDMS 12:10 12:10 Abdomen Pelvis W Con+CT.RAD.BRZ ordered. EDMS EDMS 17:45 14:41 sp3 ty
[2025-01-24] MEDS ORDERED: ONDANSETRON 4 MG/2 ML VIAL IV PRN (14:50)
[2025-01-24] MEDS ORDERED: LACTULOSE 20 GM/30 ML UCUP ONE (15:19)
[2025-01-24] MEDS ORDERED: KCL 20 MEQ/100 mL IVPB 100 ML IV ONE (15:19)
[2025-01-24] MEDS ORDERED: NA CHLORIDE 0.9% 100 ML ONE (15:19)
[2025-01-24] MEDS ORDERED: POTASSIUM 25 MEQ EFFERV TAB ONE (15:19)
[2025-01-24] MEDS ORDERED: ENOXAPARIN 40 MG/0.4 ML SQ SCH (17:00)
[2025-01-24] MEDS ORDERED: NA CHLORIDE 0.9% 500 ML ONE (18:26)
[2025-01-24] MEDS: FAMOTIDINE 20 MG TAB PO SCH (20:56)
[2025-01-24] MEDS: HYDROCORTISONE 10 MG TAB PO SCH (20:56)
[2025-01-24] MEDS: LACTULOSE 20 GM/30 ML UCUP PO SCH (20:56)
[2025-01-24] MEDS: lisinopriL 20 MG TAB PO SCH (20:57)
[2025-01-24] MEDS: ATORVASTATIN 20 MG TAB PO SCH (20:57)
[2025-01-25 04:06] VITALS: BMI 26.2
[2025-01-25] MEDS: LEVOTHYROXINE SOD 0.05 MG TABLET PO SCH (06:21)
[2025-01-25 07:07] LABS: Absolute Lymphocytes (CBC) 1.6 K/uL (0.7-4.9); Absolute Monocytes 0.5 K/uL (0.1-1.3); Absolute Neutrophil 7.1 K/uL (1.8-8.0); Basophils % 0.2 % (0-1.3); Hematocrit 39.9 % (36.0-45.0); Hemoglobin 13.4 g/dL (12.0-15.0); Lymphocytes % 17.7 % (15.3-44.8); MCH 30.7 pg (27.0-35.0); MCHC 33.6 g/dL (32.0-36.0); MCV 91.5 fL (80-100); MPV 8.2 fL (7.6-11.3); Monocytes % 5.3 % (3.3-12.3); Neutrophils % 76.8 % (41.7-73.7); Platelets 347 thou/uL (152-406); RBC Red Blood Cell Count 4.36 M/uL (3.86-4.86); Red Cell Distribution Width 13.6 % (12.1-15.2)
[2025-01-25 07:20] LABS: Magnesium 1.9 mg/dL (1.6-2.4)
--- NOTE | 2025-01-25 08:47 | RAD REPORT ---
EXAM: XR Abdomen 1 View (KUB) HISTORY: [facility] constipation COMPARISON: CT abdomen and pelvis 01/16/2025 FINDINGS: Single view of the abdomen shows a nonspecific, nonobstructive bowel gas pattern. Mild stoo l burden along the descending colon. No suspicious calcifications are seen. S-shaped scoliotic deformity of the thoracolumbar spine. IMPRESSION: Nonobstructive bowel gas pattern. Mild stool burden along the descending colon.
[2025-01-25 08:53] VITALS: O2SAT 94
[2025-01-25] MEDS: LACTULOSE 20 GM/30 ML UCUP PO ONE ×3 (09:12→13:51)
[2025-01-25] MEDS: ASPIRIN EC 81 MG TAB PO SCH (09:19)
[2025-01-25] MEDS: AMLODIPINE 5 MG TAB PO SCH (09:19)
[2025-01-25] MEDS: PANTOPRAZOLE 40MG TABLET PO SCH (09:20)
[2025-01-25] MEDS: SODIUM CHLORIDE 1 GM TAB PO SCH (09:21)
[2025-01-25] MEDS: POTASSIUM 25 MEQ EFFERV TAB PO ONE (10:09)
[2025-01-25] MEDS: MAGNESIUM HYDROXIDE 8% 30 ML PO ONE (10:09)
--- NOTE | 2025-01-25 11:06 | HP ---
Date of Admission: 01/25/2025 Chief Complaint: Constipation. History Of Present Illness: This is an 89-year-old female patient, who came into emergency room yest erday with complaints of constipation. She denies any fever, chills, nausea, vomiting, or abdominal pain. The patient called my office day before yesterday with this complaint and reported that she di d not have a bowel movement for almost 5 to 6 days and she was using Dulcolax. The patient was advis ed to use instead of Dulcolax tablet that she was using, she was advised to use Dulcolax rectal suppo sitory and MiraLAX and if that does not help, then to come to emergency room, so she did come to ER a s she did not respond to those treatment. After she was evaluated in ER, I was contacted requesting admission to hospital. Workup done in emergency room reviewed including blood work as well as CAT sc an. The patient was given Fleet enema in emergency room with no result and I did order lactulose for her. There was no evidence of any bowel obstruction on the CAT scan. When I saw the patient this m hira, she reported having very small amount of bowel movement this morning and very small amount in emergency room last night. The patient says normally she does not have constipation issue and she h as normally 1 or 2 formed bowel movement on a daily basis. She denies any blood in stool. Physical Examination: Vital Signs: Height 5 feet, weight 134 pounds, temperature 98.2, pulse 48, respiratory rate 16, bloo d pressure 145/67, oxygen saturation 94%. General: Awake, alert, oriented, not in distress. HEENT: Head atraumatic, normocephalic. Conjunctivae nonerythematous. Sclerae white. Mouth, no thr ush or edema noted. Ears/Nose, no mass, lesion, discharge noted. Neck: Supple. No JVD, lymph nodes, bruit, thyromegaly noted. Lungs: Bilateral good equal air entry. Clear to auscultation. No rhonchi. No rales. Heart: Normal heart sounds, no murmur or gallop. Abdomen: Soft, bowel sounds normal. No guarding, rigidity, tenderness, mass, hepatosplenomegaly, dis tention, or bruit noted. Extremities: No leg edema. No calf tenderness. Skin: No rash, ulcer, cellulitis. Lymphatics: No lymph node enlargement in neck, supraclavicular, infraclavicular region. Neuro: No focal neurological deficit. Chest: Unremarkable. External Genitalia: Deferred. Rectal: Deferred. Laboratory Data: Yesterday, WBC 9.5, hemoglobin 12.4, platelets 274. This morning, WBC 9.2, hemoglo bin 13.4, platelets 347. Yesterday, sodium 133, potassium 2.2, chloride 95, bicarb 32, BUN 15, creat inine 0.66, glucose 113. Liver function tests unremarkable. Lipase 43. This morning, sodium 139, p otassium 3, chloride 100, bicarb 37, BUN 9, creatinine 0.84, glucose 93, magnesium 1.9. CAT scan of abdomen and pelvis done in emergency room shows no acute findings, evidence of mild coronary calcific ation, presence of breast prosthesis, aortic atherosclerosis, 6 mm stone in left lower kidney, divert iculosis, and degenerative changes of spine with presence of moderate amount of stool burden in colon . Impression: 1. Constipation. 2. Hypokalemia. 3. Adrenal insufficiency. 4. Hypopituitarism. 5. Hypertension. 6. Hyperlipidemia. 7. Sinus bradycardia. 8. Gastroesophageal reflux disease. 9. Hypothyroidism. 10. Osteoarthritis, multiple sites. 11. Anxiety. 12. Depression. 13. Overactive bladder. Plan: We will go ahead and admit the patient to hospital for observation. Lactulose was ordered las t night. She only got 1 or 2 doses, last dose was last night, soft, not sure whether she received an other dose in emergency room prior to that or not, but in any case, I have ordered 2 more doses of la ctulose, 1 to be given around 9:15 when I communicated with the nurse and second dose around 2 p.m. a nd also ordered 1 dose of milk of magnesia. After the patient has reasonable amount of bowel movemen t, plan is to possibly discharge her to go home and I have given her instruction about using MiraLAX 2 times a day and Senokot-S 2 tablets 2 times a day to start with. If this ends up causing diarrhea, then first thing she was instructed is to stop MiraLAX and if the diarrhea problem continues, then r educe the dose of Senokot-S from 2 tablets 2 times a day to once a day and if diarrhea continues then to reduce dose to 1 tablet daily and the patient verbalized this understanding. For hypokalemia, we will replace potassium per order. The patient reports that she has not been taking her potassium lewis pplement as prescribed and I have encouraged her to do so upon discharge. For hypertension, no need for further intervention, except continuation of her medication and monitoring of blood pressure. Ot her medical problems does not require any further intervention at this time. Total time spent 50 minutes including communication with emergency room physician, review of emergenc y room visit record, review of last hospital admission on 12/23/2024, and performing today's evaluati on and management, and communication with the nursing staff. Plan is to possibly discharge her to go home this afternoon or evening time and I have requested nurse to call me to discuss possible discha rge later today. The patient was instructed to come see me next week at the office for followup. PARAMJIT/ALEXANDRA Voice ID: [id number]
[2025-01-25 16:14] VITALS: BP 146/68; TEMP 98.6
== END 2025-01-25 18:22 | disposition home or self-care (01) ==
LOC: ER 11:00 → ERHOLD 14:49 → 2ND 19:11
PROVIDERS: ADMIT Internal Medicine; ATTEND Internal Medicine
DX: K59.00 Constipation, unspecified (principal); E87.6 Hypokalemia; E27.40 Unspecified adrenocortical insufficiency; E23.0 Hypopituitarism; I10 Essential (primary) hypertension; E78.5 Hyperlipidemia, unspecified; R00.1 Bradycardia, unspecified; K21.9 Gastro-esophageal reflux disease without esophagitis; E03.9 Hypothyroidism, unspecified; M19.90 Unspecified osteoarthritis, unspecified site; F41.9 Anxiety disorder, unspecified; F32.A Depression, unspecified; N32.81 Overactive bladder
CPT/HCPCS: 85025 ×2; 80048; 36415; 83735; 84132; 83690; 80053; 74177; 74018; 96374; 99284; Q9967; J3480; J7040; G0378